=== PATIENT | female | born 1975 | race Caucasian/White ===

== ENCOUNTER → 2018-09-05 08:11 | Outpatient (CLI) | payer OTHER, SELFPAY ==
[2017-09-24 12:32] VITALS: BMI 38.6
[2018-09-05 08:43] LABS: Absolute Neutrophil Count 3.8 X10^3/uL (2.0-7.7); Basophil# 0.05 X10^3/uL; Basophil% 0.8 % (0-1); Eosinophil# 0.21 X10^3/uL; Eosinophils% 3.2 % (0-5); Hematocrit 39.3 % (37-47); Hemoglobin 12.6 g/dl (12.0-15.0); Lymphocyte % 32.2 % (19-41); Mean Corp Hgb Conc 32.1 g/gl (32-36); Mean Corpuscular Hgb 26.9 pg (27.0-32.0); Mean Corpuscular Volume 83.8 fL (81-99); Mean Platelet Vol. 9.4 fl (6.2-12.0); Monocyte# 0.36 X10^3/uL; Monocyte% 5.5 % (0-10); Neutrophil % 58.1 % (47-70); Platelet Count 294 K/mm3 (150-450); RBC Distribution Width CV 14.5 % (11.6-14.6); RBC Distribution Width SD 43.2 fl (35.1-43.9); Red Blood Count 4.69 M/mm3 (4.2-5.4); White Blood Count 6.5 K/mm3 (4.4-11.0)
[2018-09-05 08:44] LABS: POSITIVE COUNT NO; POSITIVE DIFFERENTIAL NO; POSITIVE MORPHOLOGY NO
[2018-09-05 09:02] LABS: AST(SGOT) 16 U/L (15-37); Alanine Aminotransfer ALT/SGPT 29 U/L (13-56); Albumin, Serum 3.6 g/dL (3.2-5.0); Alkaline Phosphatase 69 U/L (45-117); Anion Gap 7 (5-15); BUN 20 mg/dL (7-18); BUN/Creat Ratio 21.3 RATIO (10-20); Calcium,Total 8.5 mg/dL (8.5-10.1); Chloride 111 mmol/L (98-107); Cholesterol 147 mg/dL (200); Creatinine, Serum 0.94 mg/dL (0.55-1.02); EST Glomerular Filtration Rate 69 mL/min (>60); Est Glom Filt Rate - Afr Amer 84 mL/min (>60); Free T3 2.7 pg/mL (2.18-3.98); Globulin 3.6 g/dL (2.2-4.2); Glucose 91 mg/dL (74-106); High Density Lipoprotein 47 mg/dL; Potassium 4.1 mmol/L (3.5-5.1); Protein, Total 7.2 g/dL (6.4-8.2); Sodium Level 142 mmol/L (136-145); T4 Free Direct 1.16 ng/dL (0.76-1.46); Thyroid Stim Hormone (TSH) 1.84 uIU/mL (0.358-3.74); Triglycerides 68 mg/dL; Very Low Density Lipoprotein 14 mg/dL (5-40)
[2018-09-05 09:54] LABS: Hemoglobin A1c 5.7 % (4.2-6.3)
== END ==
PROVIDERS: Family Provider Family Medicine; PCP Family Medicine; Referring Provider Family Medicine; Visit Provider Family Medicine
DX: R73.03 Prediabetes (principal); E88.81 Metabolic syndrome and other insulin resistance; R53.83 Other fatigue
CPT/HCPCS: 36415; 80053; 80061; 83036; 84439; 84443; 84481; 85025

== ENCOUNTER → 2019-01-04 11:42 | Outpatient (CLI) | payer OTHER, SELFPAY ==
[2019-01-08 13:06] LABS: Acetylcholine Receptor Binding 0.24 nmol/L (0.00-0.24)
== END ==
PROVIDERS: Family Provider Family Medicine; PCP Family Medicine; Referring Provider Ophthalmology; Visit Provider Ophthalmology
DX: H02.402 Unspecified ptosis of left eyelid (principal); E11.9 Type 2 diabetes mellitus without complications
CPT/HCPCS: 36415; 84238

== ENCOUNTER → 2019-01-23 08:43 | Outpatient (CLI) | payer OTHER, SELFPAY ==
[2017-09-24 12:32] VITALS: BMI 38.6
== END ==
PROVIDERS: Family Provider Family Medicine; PCP Family Medicine; Referring Provider Family Medicine; Visit Provider Family Medicine
DX: G70.00 Myasthenia gravis without (acute) exacerbation (principal)
CPT/HCPCS: 36415

== ENCOUNTER → 2019-02-06 13:04 | Outpatient (CLI) | payer OTHER, SELFPAY ==
[2019-02-06 13:30] LABS: Absolute Lymphocyte Count 2.43 X10^3/ul (0.83-4.51); Absolute Neutrophil Count 3.4 X10^3/uL (2.0-7.7); Basophil# 0.02 X10^3/uL; Basophil% 0.3 % (0-1); Eosinophil# 0.26 X10^3/uL; Hematocrit 38.2 % (37-47); Hemoglobin 11.9 g/dl (12.0-15.0); Lymphocyte # 2.43 X10^3/ul (4.0); Lymphocyte % 36.9 % (19-41); Mean Corp Hgb Conc 31.2 g/gl (32-36); Mean Corpuscular Hgb 26.4 pg (27.0-32.0); Mean Corpuscular Volume 84.9 fL (81-99); Monocyte# 0.45 X10^3/uL; Monocyte% 6.8 % (0-10); Neutrophil # 3.41 X10^3/uL (2.7-7.7); Neutrophil % 51.8 % (47-70); Platelet Count 281 K/mm3 (150-450); RBC Distribution Width CV 13.8 % (11.6-14.6); RBC Distribution Width SD 42.4 fl (35.1-43.9); White Blood Count 6.6 K/mm3 (4.4-11.0)
[2019-02-06 13:31] LABS: POSITIVE COUNT NO; POSITIVE DIFFERENTIAL NO; POSITIVE MORPHOLOGY NO
[2019-02-06 13:44] LABS: Ferritin 18 ng/mL (8-252); Iron 58 ug/dL (50-170)
== END ==
LOC: LAB.FUTURE 13:05 → PAVLAB 13:07
PROVIDERS: Family Provider Family Medicine; PCP Family Medicine; Referring Provider Family Medicine; Visit Provider Family Medicine
DX: D64.9 Anemia, unspecified (principal); R23.3 Spontaneous ecchymoses
CPT/HCPCS: 36415; 82728; 83540; 85025

== ENCOUNTER → 2019-02-15 08:48 | Outpatient (CLI) | payer OTHER, SELFPAY ==
[2017-09-24 12:32] VITALS: BMI 38.6
--- NOTE | 2019-02-15 14:59 | NEURO_ITS ---
NCS and/or EMG Patient Report Ordering Doctor: Juliann Lowery DATE OF SERVICE: 02/15/19 Jacqueline Bloom is a 43-year-old female presents for electrodiagnostic testing of the right upper limb. She has had left sided ptosis for the past several years. She is referred for possible evaluation of neuromuscular disease and maddison ting to include repetitive stimulation, nerve conduction testing and EMG. Electrodiagnostic findings: Right median motor nerve demonstrates normal distal latency amplitude and conduction velocity. Normal right ulnar motor response, including conduction across the elbow. Normal median and ulnar F waves. Prolonged right median sensory latency at the wrist. Normal ulnar and radial sensory responses. On needle EMG, all muscles tested in the right upper limb showed no evidence of denervation with normal motor unit action potentials. Repetitive stimulation was done on the right abductor digiti minimi. Multiple stimulations were done without exercise and there was no evidence of decrement noted. The patient then exercised to the left hand for approximately 1 minute after which repetitive stimulation was once again done. Again, there was no decrement noted across the stimulations. Electrodiagnostic impression: This is an abnormal study in the right upper limb. 1. Electrodiagnostic findings demonstrate a right sided median mononeuropathy. This is consistent with a mild right carpal tunnel syndrome 2. Electrodiagnostic findings are not suggestive of neuromuscular disease, including myasthenia gravis. Repetitive stimulation before and after exercise did not demonstrate any decrement in amplitude. If there are any further questions, please do not hesitate contact me.
== END ==
PROVIDERS: Family Provider Family Medicine; PCP Family Medicine; Referring Provider Family Medicine; Visit Provider Family Medicine
DX: G70.00 Myasthenia gravis without (acute) exacerbation (principal)
CPT/HCPCS: 95886; 95910; 95937

== ENCOUNTER → 2019-03-10 07:13 | Outpatient (CLI) | payer OTHER, SELFPAY ==
[2017-09-24 12:32] VITALS: BMI 38.6
--- NOTE | 2019-03-10 07:45 | MRI_ITS ---
STUDY: MRI BRAIN WITH AND WITHOUT CONTRAST REASON FOR EXAM: Female, 43 years old. Left eye ptosis, left eye drifting TECHNIQUE: Standardized multiplanar fat and water weighted pulse sequences were obtained. 20 IV Dotarem was administered for the contrast portion of the examination. COMPARISON: 03/29/2008 FINDINGS: Normal size of the ventricles and extra-axial spaces for the patient's age. Normal white matter tracts of the supratentorial brain. There is no evidence for recent intracranial ischemia or other cause of cytotoxic edema on diffusion weighted imaging (DWI). Normal T2* images of the brain without demonstrated susceptibility artifact. There is no demonstrated hemosiderin stain. Normal bilateral basal ganglia. Normal thalami. There is no extra-axial fluid accumulation. Normal flow voids within the major intracranial circulation suggesting patency by spin echo criteria. Normal venous enhancement. There is no enhancing intra-axial or extra-axial abnormality. Normal sella turcica, pituitary gland, infundibular stalk, optic chiasm and hypothalamus. Normal tectal plate and pineal gland. Normal midbrain, naresh and medulla. 15 mm of cerebellar tonsillar ectopia with platybasia and cervical medullary kinking consistent with a Chiari I malformation. No obvious syrinx. Normal basal cisterns. Normal bilateral temporal bones. Normal bilateral internal auditory canals. No demonstrated orbital abnormality, within the constraints of a routine brain study. Normal visualized paranasal sinuses. Normal calvarium and skull base. Normal visualized soft tissue structures. Normal visualized upper cervical spine. MRI/Brain W/WO Contrast IMPRESSION: No change in Chiari I malformation. Electronically Signed: Otoniel Nolasco MD at 9:16 EDT Tel , Service support ,
--- NOTE | 2019-03-10 08:54 | BI_ITS ---
MAMMOGRAPHY - BILATERAL SCREENING REASON FOR EXAM: Female, 43 years old. Routine annual screening examination. PERTINENT HISTORY: Non-contributory. TECHNIQUE: Digital bilateral breast williams (3D mammographic acquisition) in the CC and MLO projections. 2-D mediolateral oblique (MLO) and craniocaudad (CC) views of both breasts were obtained. CAD: Full Field Digital Mammography with Computer Added Detection was performed. COMPARISON: Comparison is made with prior ocular examination dated May 14, 2015. FINDINGS: Breast Composition: There are scattered areas of fibroglandular density. There are no dominant masses or suspicious calcifications. There is a 5.3 mm well-defined nodule in the central retroareolar region of the left breast best seen on the craniocaudad view. This may represent either a small cyst or small lymph node. Correlation with ultrasound is recommended. No other significant abnormalities are identified. BI/SCREEN MAMM (CAD) W/WILLIAMS BILAT IMPRESSION: 5.3 mm well-defined nodule in the central retroareolar region of the left breast as described. Correlation with ultrasound is recommended. ASSESSMENT CATEGORY: BIRADS Category 0: Incomplete. Need additional imaging evaluation. A letter regarding these results will be sent to the patient by the facility within 30 days. Approximately 10% of breast cancers are not detected by mammography. A normal mammogram should not delay biopsy of a clinically suspicious abnormality. [id number] Electronically Signed: Arash Castaneda, at 8:27 EDT , Service support ,
== END ==
PROVIDERS: Family Provider Family Medicine; PCP Family Medicine; Referring Provider Family Medicine; Visit Provider Family Medicine
DX: Z12.31 Encounter for screening mammogram for malignant neoplasm of breast (principal); H50.112 Monocular exotropia, left eye; H02.402 Unspecified ptosis of left eyelid
CPT/HCPCS: 70553; 77063; 77067; A9575

== ENCOUNTER → 2019-03-17 09:57 | Outpatient (CLI) | payer OTHER, SELFPAY ==
--- NOTE | 2019-03-17 10:03 | US_ITS ---
STUDY: ULTRASOUND BREAST - LEFT REASON FOR EXAM: Female, 43 years old. Abnormal screening mammogram. TECHNIQUE: Axial and longitudinal images of the LEFT breast were performed with a high resolution ultrasound transducer. COMPARISON: Comparison is made with prior mammogram dated March 10, 2019. FINDINGS: LEFT Breast: The mammographic abnormality corresponds to a 5 mm x 6 mm x 5 mm well-defined hypoechoic nodule with a central echogenic hilum in keeping with a lymph node. This is at the 12:00 position of breast at 5 cm from the nipple. US/Breast Limited Unilateral IMPRESSION: The mammographic abnormality corresponds to a small 5 mm x 6 mm x 5 mm lymph node. ASSESSMENT CATEGORY: BIRADS Category 2: Benign. A letter regarding these results will be sent to the patient by the facility within 30 days. Electronically Signed: Arash Castaneda, at 11:05 EDT , Service support ,
== END ==
PROVIDERS: Family Provider Family Medicine; PCP Family Medicine; Referring Provider Family Medicine; Visit Provider Family Medicine
DX: R92.8 Other abnormal and inconclusive findings on diagnostic imaging of breast (principal); N63.42 Unspecified lump in left breast, subareolar
CPT/HCPCS: 76642

== ENCOUNTER 2019-06-09 10:12 | Day surgery (SDC) | payer OTHER, SELFPAY ==
[2019-04-28 09:49] VITALS: BMI 38.6
--- NOTE | 2019-05-01 08:37 | HP_ITS ---
Intake Vital Signs 04/27/19 Height 5 ft 3.5 in 04/27/19 Weight: 240 lb 04/27/19 Body Mass Index (BMI) 41.8 04/27/19 Blood Pressure 138/89 H 04/27/19 Blood Pressure Location Rt brachial 04/27/19 Respiratory Rate 18 04/27/19 Body Mass Index (BMI) 41.8 Intake Visit Reasons: Hemorrhoids Clinical Services Manager Required: No Allergies cephalexin [From Keflex] Adverse Reaction (Verified 04/27/19 14:54) makes him feel bad Medications Fluoxetine [Prozac] 60 mg PO DAILY 03/02/15 [History Confirmed 04/27/19] Acetaminophen/Codeine #3 [Tylenol#3] 1 tab PO Q6H PRN PRN 2 Days #5 tab 02/08/18 [Rx Confirmed 04/27/19] PFSH Medical History Depression (Acute) Environmental allergies (Acute) Surgical History S/P carpal tunnel release (Acute) S/P inguinal hernia repair (Acute) s/p lip cyst removal (Acute) Family History Father Arthritis Social History (Updated 05/01/19 @ 08:40 by Shiraz Marroquin MD) Smoking Status: Former smoker alcohol intake: current HPI HPI HPI: DI STRANGE, is a 50 M who presents to the office today for HPI HPI Surgical H&P: Yes HPI: DI STRANGE, is a 50 M who presents to the office today for hemorrhoids. The patient has itching and discomfort. He said that occasionally he sees some bright red blood when he wipes but there is none in his stool. He is not having any abdominal pain. He has no family history of colon cancer. ROS General General: No weight change, appetite, fatigue, colon cancer, breast cancer or weakness HEENT HEENT: No difficulty swallowing, eye injury, eye surgery, swollen glands or hoarseness Endo Endocrine: No thyroid disease, diabetes mellitus, thyroid cancer, Hair loss, heat intolerance or cold intolerance Skin Skin: No rash or changing moles Breast Breast: No left breast lump, right breast lump, nipple discharge, breast pain, abnormal mammogram, abnormal US or breast enlargement Musc Musculoskeletal: Yes arthritis; no back problems, rheumatoid arthritis, gout or joint pain Cardio Cardiovascular: Yes high blood pressure; no murmur, pacemaker, heart disease, atrial fibrillation, heart attack, heart stent, palpitations, shortness of breat with exertion or chest pain Psych Psychiatric: Yes depression; no anxiety or hearing voices Resp Respiratory: No shortness of breath, Yes sleep apnea, No cough, No COPD, No asthma, No emphysema, No wheezing Gastro Gastrointestinal: No abdominal pain, No nausea or vomiting, No diarrhea, No constipation, No blood in stool, No acid reflux, Yes hemorrhoids, No ulcers, No gallbladder problem, No black,tarry stools Franky Hematologic: No blood thinners, No blood disorders, No bleeding, No anemia, No blood clots Neuro Neurologic: No system reviewed and no additional complaints, except as docu, No as per HPI, No abnormal walking, No abnormal hearing, No abnormal movements, No abnormal speech, No behavioral changes, No burning sensations, No confusion, No seizure-like activity, No unsteadiness, No dizziness, No localized weakness, No frequent falls, No headache(s), No lack of coordination, No loss of vision, No memory loss, No numbness, No other visual disturbances, No radiating pain, No restless legs, No sensory deficit, No fainting, No tingling, No tremor(s), No weakness, No other Exam Const General: cooperative Orientation: alert, oriented x3 Chest Breast Palpation: No nipple discharge Resp Effort & Inspection: normal respiratory effort Auscultation: clear to auscultation bilaterally Cardio Rate: regular rate Rhythm: regular rhythm Heart Sounds: no murmurs GI Inspection: non-distended Palpation: soft, nontender Rectal Exam: visual inspection normal Assessment & Plan Problems 1. Rectal itching L29.0 2. Encounter for screening for malignant neoplasm of colon Z12.11 Plan The patient has no appreciable hemorrhoids on rectal exam. He is complaining of itching and pain in the rectal area. The patient has never had a screening colonoscopy so I would recommend he have a colonoscopy now. I explained endoscopy in detail to the patient. I explained the risks including but not limited to stroke or heart attack with anesthesia, perforation of the GI tract, bleeding, infection. I explained that any of these could necessitate further emergency surgery. The patient understands and all questions were answered sufficiently. The patient wishes to proceed with procedure. Shiraz Marroquin MD Pager: [facility] [address] [place] [address], [address] [place] [address] Office: Orders Orders: Colonoscopy 04/27/19 Z12.11 Coding Level of Care Code Off vis,new,level 3 Diagnoses Rectal itching L29.0 Encounter for screening for malignant neoplasm of colon Z12.11 05/01/19 0840 <Electronically signed by Shiraz wyatt MD> Date _ Shiraz Marroquin MD I have re-examined the patient. There are no clinical changes since date of exam.
[2019-06-09] VITALS (7 sets, daily range): BP systolic 92–109; BP diastolic 57–68; PULSE 60–78; RESP 16; TEMP 36.3–37; O2SAT 93–100; BMI 34.4
--- NOTE | 2019-06-09 | GASB_PTH ---
PATIENT: YASMIN ESQUIVEL LOC: EN U#:[id number] AGE/SX: 44/F ROOM: RE06/09/[address]: Dr. Shiraz Marroquin MD : 1975 BED: DIS: 06/09/2019 SPEC #: [id number] RECD: 06/09/19 14:48 STATUS: CAREY MICHELE #: [id number] JOCE: 06/09/19 00:[address]: Shiraz Marroquin DEPT: SURGICAL PATHOLOGY RECD BY: Rodriguez Steiner ENTERED: 06/09/19 14:48 SP TYPE: Gastric Bx OTHR DR: Dr. Juliann Lowery DO Tissues: A - Gastric mucous membrane B - Gastric mucous membrane Procedures: Special Stain Group II Surgery Specimen Level IV Alcian Blue/PAS (control) HEADER OPERATION: EGD - PH probe ([facility]) PRE-OP DIAGNOSIS: GERD TISSUE SUBMITTED: A - Antrum biopsy for histo and H. pylori, B - GE junction biopsy MICROSCOPIC DIAGNOSIS A. Antrum biopsy: Mild to moderate gastritis. See microscopic description and comment. B. GE junction, biopsy: Fragments of gastroesophageal mucosa with chronic inflammation. Intestinal metaplasia (goblet cell metaplasia) is not identified. See comment. SJ:anurag 06/12/19 COMMENT A. The results of immunohistochemistry for Helicobacter pylori will be reported separately ([id number]). B. Alcian blue/PAS stain with matched control is used in the evaluation of the specimen. MICROSCOPIC DESCRIPTION Slides are reviewed. A. The specimen shows fragments of gastric mucosa with chronic inflammatory cell infiltrates in the lamina propria consisting of lymphocytes and plasma cells, consistent with mild to moderate chronic gastritis. GROSS DESCRIPTION A - Received in fixative is one container labeled with the patient's name and designated antrum biopsy. The specimen consists of two irregular fragments of light parikh soft tissue that in aggregate measure 0.6 x 0.5 x 0.1 cm. The specimen is totally submitted in one cassette. B - Received in fixative is one container labeled with the patient's name and designated GE junction biopsy. The specimen consists of multiple irregular fragments of light parikh soft tissue that in aggregate measure 0.7 x 0.3 x 0.1 cm. The specimen is totally submitted in one cassette. / RUSLAN:anurag 06/09/19 TC:3 CPT: 00091 x2, 10998
[2019-06-09] MEDS: Lactated Ringers 1,000 ML 100 ML IV (10:56)
[2019-06-09 11:03] LABS: Internal QC Validated? YES +Cl - CLEAR BKGD; Pregnancy, Urine Negative Negative
--- NOTE | 2019-06-09 11:30 | IMM_PTH ---
PATIENT: YASMIN ESQUIVEL LOC: [facility] U#:[id number] AGE/SX: 44/F ROOM: RE06/09/[address]: Dr. Shiraz Marroquin MD : 1975 BED: DIS: 06/09/2019 SPEC #: [id number] RECD: 06/12/19 09:21 STATUS: CAREY RESeverino #: [id number] JOCE: 06/09/19 11:[address]: Shiraz Marroquin DEPT: IMMUNOHISTOCHEMISTRY RECD BY: So Kennedy ENTERED: 06/12/19 09:23 SP TYPE: IMMUNO OTHR DR: Dr. Juliann Lowery DO Tissues: A - Stomach, NOS Procedures: H Pylori (initial) PHYSICIAN & INSTITUTION [place] [id number] SPECIMEN INFORMATION: Tissue Source: A - Antrum biopsy Clinical Info: GERD Specimen Number: [id number] CPT code: 35572 METHODOLOGY: Deparaffinized sections of prefer/formalin-fixed tissue or PAP/DQ stained slides are incubated with monoclonal/polyclonal antibodies/oligonucleotide probes. Localization is made via biotin free immunoperoxidase method. Appropriate controls are performed and reacted as expected. Results on target cell population are indicated in the following table: RESULTS: ANTIBODY / CLONE RESULT Block A H Pylori (polyclonal) negative These tests were developed and their performance characteristics determined by [facility]. They may not have been cleared or approved by the U.S. Food and Drug Administration. The FDA has determined that such clearance or approval is not necessary. INTERPRETATION: A. Antrum biopsy: Negative for Helicobacter pylori organisms. SJ:anurag 06/12/19
--- NOTE | 2019-06-09 11:54 | HP.PCM_ITS ---
History of Present Illness Date of Admission: 06/09/19 The patient is a 44 year old F with severe GERD is here for EGD with pH probe. The patient has had significant GERD for a long time and is dependent on PPI. Past Medical/Surgical History - Planned Operation Planned Operative Procedure/s: egd ph probe Date of Operative Procedure: 06/09/19 Permit Signed: No S.O.S: No Is This Patient Having a Total Joint: No - Previous Hospitalizations/Surgeries HX Hospitalizations: No HX of Surgeries: tonsillectomy as child. d&c 2002. eye lift 2007 Any Problems With Anesthesia: No You/Your Family Experience Fever (Hyperthermia) With Anes: No Cholinesterase deficiency: No - Cardiovascular Hx Chest Pain within Last 2 months: No Hx of Irregular Heartbeat and/or Afib: No Hx Heart Attack: No Hx Congestive Heart Failure: No Hx Rheumatic Fever: No Hx Hypertension: No Hx Internal Defibrillator: No Hx Pacemaker: No Hx Cardiac Catheterization: No Hx Cardiac Surgery/Stents/Etc.: No Hx Stress Test: No HX Edema: No Hx Pain in Legs when Walking/Leg Cramps: No - Respiratory Chronic Cough: No HX of Shortness of Breath: No Hoarseness: No Hx Chronic Obstructive Pulmonary Disease (COPD): No Hx Asthma: Yes - exercised induced Hx Emphysema: No Hx Sleep Apnea: No Hx Oxygen Use at Home: No Hx Respiratory Tract Infection/Cold (presently): No Do You Snore Loudly (louder than talking or can be heard): Yes Do You Often Feel Tired/ Fatigued/ Sleepy Dring Daytime?: No Has Anyone Observed You Stop Breathing During Sleep?: No Result (for STOP score): Negative Hx Smoking: No Smoking Status: Never smoker - Gastrointestinal Hx Gastroesophageal Reflux: Yes Controlled With Meds: Yes Hx Gastrointestinal Disorders: No Hx Gastrointestinal Bleed: No Hx Ulcer: No Hx Hiatal Hernia: No Difficulty Chewing/Swallowing: No Recent Onset of Swallowing Problems: No Special diet followed at home: Yes - ada Hx Unplanned Weight Loss of 20#: No HX Unplanned Weight Gain of 20#: No - Neurological Hx Seizures: No HX Syncope/Blackout Spells/Unconsciousness: No Hx CVA/Stroke: No Hx Transient Ischemic Attacks (TIA): No Hx Multiple Sclerosis: No Hx Parkinson's Disease: No Hx Head/Neck Injury: No Hx Headaches: No Hx Back Injury/Pain: No Recent Onset of Speech Difficulty: No Restless Legs: Yes - on med Does patient have nerve stimulator: No Patient instructed to have device shut off: No Rep notified?: No - Blood Disorder Hx Leukemia: No Bleeding Tendencies: Yes - easy bruising Hx Deep Vein Thrombosis: No Hx High Cholesterol: No Blood Transmitted Disease: No Hx Hepatitis: No Hx Cirrhosis: No Hx Anemia: No Hx Blood Disorders: No - Reproduction : No Is Patient Lactating: No Hx Hysterectomy: No Hx Tubal Ligation: No Are You Post Menopause: No Pt Instructed Not To Have Any Sex From Now Until Surgery: No - Genitourinary Hx Renal Disease: No - Musculoskeletal Hx Arthritis: No Hx Rheumatoid Arthritis: No Hx Gout: No Recent Onset of an Orthopedic Problem: No - Endocrine Hx Diabetes: Yes Insulin: No Thyroid Disease: No Hx Steroid Therapy: No - Psycho/Social Hx Substance Use: No Hx Alcohol Use: No Hx Anxiety: No Hx Depression: Yes - on med Mental Illness: No Hx Dementia: No - Miscellaneous Hx Cancer: No Recent Exposure to Contagious Disease: No Active MRSA: No Hx of C-Diff: No Any Loose Teeth: No Allergies Penicillins Allergy (Verified 06/08/19 10:43) Rash - Discharge Is Pt Admitted From a Skilled Nursing, or a Long-Term: No Who Could Help: family After D/C, Where Do you Plan to Go: Return Home - Physical Exam Vitals/I&O's: Vital Signs Temp Pulse Resp BP Pulse Ox 98.6 F 75 16 109/68 93 06/09/19 10:46 06/09/19 10:46 06/09/19 10:46 06/09/19 10:46 06/09/19 10:46 Oxygen Delivery Method Room Air Weight: 213 lb 13.574 oz Body Mass Index (BMI) 34.4 General: Alert, Oriented x3 Neck: No JVD Lungs: Normal air movement Cardiovascular: Regular rate, Regular Rhythm Abdomen: Soft, Non Tender, Non-Distended Laboratory Results 06/09/19 10:46: Urine Test Negative Current Medications Lactated Ringer's () 1,000 mls @ 100 mls/hr IV .Q10H GISELLA Last Admin: 06/09/19 10:56 Dose: 100 mls/hr Documented by: Assessment/Plan All Active Problems (Last Reviewed 04/28/19 @ 09:42 by Tiana Black) History of eyelid surgery (Acute) Hx of dilation and curettage (Acute) Hx of tonsillectomy (Acute) Acid reflux (Acute) Heart murmur (Acute) of child (Acute) Conjunctivitis (Acute) Corneal abrasion (Acute) 44-year-old female with severe GERD 1. Plan is for EGD with pH probe. 2. I explained endoscopy in detail to the patient. I explained the risks including but not limited to stroke or heart attack with anesthesia, perforation of the GI tract, bleeding, infection. I explained that any of these could nece ssitate further emergency surgery. The patient understands and all questions were answered sufficiently. The patient wishes to proceed with procedure. Shiraz Marroquin MD Pager: [facility] [address] [place] [address], [address] [place] [address] Office: Surgery Risks - Colonoscopy Risks Include but are not Limited To: Risks include but are not limited to: Bleeding, perforation requiring further surgery, inability to complete colonoscopy requiring barium enema.
--- NOTE | 2019-06-09 12:25 | OP.EGD_ITS ---
Patient Name: Jacqueline Bloom Procedure Date: 06/09/2019 12:00 PM Date of : 1975 Age: 44 Procedure: Upper GI endoscopy Indications: Suspected gastro-esophageal reflux disease Providers: Shiraz Marroquin MD Referring MD: Juliann Lowery Medicines: Monitored Anesthesia Care Patient Profile: This is a 44 year old female. Refer to note in patient chart for documentation of history and physical. Complications: No immediate complications. Estimated blood loss: Minimal. Procedure: Pre-Anesthesia Assessment: - Prior to the procedure, a History and Physical was performed, and patient medications and allergies were reviewed. The patient's tolerance of previous anesthesia was also reviewed. The risks and benefits of the procedure and the sedation options and risks were discussed with the patient. All questions were answered, and informed consent was obtained. Prior Anticoagulants: The patient has taken no previous anticoagulant or antiplatelet agents. After reviewing the risks and benefits, the patient was deemed in satisfactory condition to undergo the procedure. After obtaining informed consent, the endoscope was passed under direct vision. Throughout the procedure, the patient's blood pressure, pulse, and oxygen saturations were monitored continuously. The gastroscope was introduced through the mouth, and advanced to the second part of duodenum. The upper GI endoscopy was accomplished without difficulty. The patient tolerated the procedure well. Scope In: 12:14:02 PM Scope Out: 12:21:47 PM Total Procedure Duration Time 0 hours 7 minutes 45 seconds Findings: Esophagitis with no bleeding was found at the gastroesophageal junction. Biopsies were taken with a cold forceps for histology. Mild inflammation was found in the gastric antrum. Biopsies were taken with a cold forceps for Helicobacter pylori testing. The ANDERSON capsule with delivery system was introduced through the mouth and advanced into the esophagus, such that the ANDERSON pH capsule was positioned 30 cm from the incisors, which was 6 cm proximal to the GE junction. Suction was applied to the well of the ANDERSON pH capsule to suck in the adjacent mucosa of the esophagus using the external vacuum pump set at a minimum vacuum pressure of 550 mmHg for 30 seconds. The ANDERSON pH capsule was then deployed by depressing the plunger on top of the handle to advance the locking pin into the mucosa, thereby attaching the capsule to the esophagus. The plunger was then rotated a quarter turn clockwise to release the capsule from the delivery system. The delivery system was then withdrawn. Endoscopy was utilized for probe placement and diagnostic evaluation. The scope was reinserted to evaluate placement of the ANDERSON capsule. Visualization showed the ANDERSON capsule to be in an appropriate position. Impression: - Reflux esophagitis. Biopsied. - Gastritis. Biopsied. - The ANDERSON pH capsule was positioned 30 cm from the incisors, which was 6 cm proximal to the GE junction. Recommendation: - Discharge patient to home. - Resume previous diet. - Continue present medications. - Await pathology results. Procedure Code(s): --- Professional --- 85581, Esophagogastroduodenoscopy, flexible, transoral; with biopsy, single or multiple 43029, 51, Esophagus, gastroesophageal reflux test; with mucosal attached telemetry pH electrode placement, recording, analysis and interpretation Diagnosis Code(s): --- Professional --- K21.0, Gastro-esophageal reflux disease with esophagitis K29.70, Gastritis, unspecified, without bleeding CPT copyright 2017 [employer]. All rights reserved. The codes documented in this report are preliminary and upon access services librarian review may be revised to meet current compliance requirements. Shiraz Marroquin MD 06/09/2019 12:25:32 PM This report has been signed electronically. Number of Addenda: 0 Note Initiated On: 06/09/2019 12:00 PM
== END 2019-06-09 13:10 | disposition home or self-care (01) ==
LOC: EN 10:12 → AC 10:17
PROVIDERS: Anesthesiology; Family Provider Family Medicine; PCP Family Medicine; Referring Provider Family Medicine; Visit Provider Surgery
PROC: (CPT 43239; principal; 2019-06-09 11:25)
DX: K21.9 Gastro-esophageal reflux disease without esophagitis (principal); K29.70 Gastritis, unspecified, without bleeding; E11.9 Type 2 diabetes mellitus without complications; G25.81 Restless legs syndrome; J45.990 Exercise induced bronchospasm; F32.9 Major depressive disorder, single episode, unspecified; Z79.84 Long term (current) use of oral hypoglycemic drugs; Z79.899 Other long term (current) drug therapy; Z88.0 Allergy status to penicillin
CPT/HCPCS: 43239; 91035; 81025; 88305; 88313; 88342; J7120; J2405

== ENCOUNTER → 2020-06-12 10:27 | Outpatient (CLI) | payer OTHER, SELFPAY ==
[2019-06-09 10:46] VITALS: BMI 34.4
--- NOTE | 2020-06-12 10:32 | BI_ITS ---
MAMMOGRAPHY - BILATERAL SCREENING REASON FOR EXAM: Female, 45 years old. Routine annual screening examination. PERTINENT HISTORY: Non-contributory. TECHNIQUE: Digital bilateral breast williams (3D mammographic acquisition) in the CC and MLO projections. 2-D mediolateral oblique (MLO) and craniocaudad (CC) views of both breasts were obtained. CAD: Full Field Digital Mammography with Computer Added Detection was performed. COMPARISON: Comparison is made with prior study dated 03/10/2019. FINDINGS: Breast Composition: There are scattered areas of fibroglandular density. There are no dominant masses or suspicious calcifications. Stable faint 5.3 mm well-defined nodule in the central retroareolar region of the left breast. This is best seen on the craniocaudad view. Prior ultrasound demonstrated this to represent a small lymph node. No other significant abnormalities are identified. There has been no significant change since the prior study. BI/SCREEN MAMM (CAD) W/WILLIAMS BILAT IMPRESSION: Stable bilateral screening mammogram. Yearly follow-up mammogram recommended. (A) ASSESSMENT CATEGORY: BIRADS Category 2: Benign. A letter regarding these results will be sent to the patient by the facility within 30 days. Approximately 10% of breast cancers are not detected by mammography. A normal mammogram should not delay biopsy of a clinically suspicious abnormality. [id number] Electronically Signed: Arahs Castaneda, at 11:35 EST , Service support ,
== END ==
PROVIDERS: PCP Family Medicine; Referring Provider Family Medicine; Visit Provider Family Medicine
DX: Z12.31 Encounter for screening mammogram for malignant neoplasm of breast (principal)
CPT/HCPCS: 77063; 77067

== ENCOUNTER 2020-09-09 15:30 | Outpatient (RCR) | payer OTHER, SELFPAY ==
[2020-08-16 08:07] VITALS: BMI 37.1
--- NOTE | 2020-08-21 17:06 | HP.PTEVAL_ITS ---
Patient's Visit Information YASMIN ESQUIVEL is a 45 year old F referred to Physical Therapy by Dr. Eduar Robert DO with a diagnosis of R biceps tendonitis. Date of Evaluation: 08/21/20 Physical Therapist: AUGUSTIN LynchT, OCS, CSCS - Visit Plan Frequency: 1-3x/week Duration: 4-6 Weeks Plan: 1-3x/week for 3-6 weeks as needed for. 1. strength posture and RC and activitiy modification for impingement. 2. needed increase frequency for US, CFM, grade 1-2 shoulder mobs adn strength progression. Next session monitor activitiy modification adn progress to strengthening phase 3 or incrrease frequency for modalities. - Subjective 8 weeks ago started R shoulder pain. Does crossfit 3x/week adn running adn walking. Had to scale crossfit workout adn [facility] Last Wednesday injectiona dn antiinflammatory adn sent for PT. Not feeling a whole lot better. Pain is not present at rest. Reaching OH hurts, sleeping on R side hurts with arms up, Reaching across chest is painful. Curls and burpees are OK. Sleep OK if not on R side. 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 Work is pretty OK. Likes to walk dogs and it has been fine. Basic ADLs: dressing is OK and reaching into cupboards. Not avoiding anything that she can think of. Did fall one time about when this started. Knocked over by dog and landed on R arm. - Pain R shoulder pain Pain Intensity (Out of 10): 0 Pain Intensity Range: 0, 5 - Objective FW head posture and forward shoulders. Tender to papation in R supraspinatus insertion and biceps tendon anteriory. Full aROM R shoulder but end IR, flexion adn across body is painful. neck adn L shoulder ROM is full and painfree. reflexes 2/3 bi and tri. Sensation B UE WNL to gross light touch. + R HK adn neer. - sulcus. - apprehension. - speeds. - Goals Goal 1:: Patient feel 90% better with pain 1/10 at worst adn transient Goal Time Frame: 4-6 Weeks Goal 2:: Pt back to effective crossfit workout without limitations shoulder Goal Time Frame: 4-6 Weeks Goal 4:: I approp HEP for RC/postural strength Goal Time Frame: 4-6 Weeks - Rehabilitation Potential Physical Therapy Diagnosis: R biceps impingement tendonitis Rehabilitation Potential: Good - Anticipated Interventions Patient/Client Instruction: Educate patient on: Condition, Plan of Care For the Purpose of:: To decrease pain, To improve muscle performance and motor function, To increase tolerance to activity/condition/position Therapeutic Exercise to Include: Strength training, Postural training, Passive ROM, Scapular Strength/Stabilization For the Purpose of:: To decrease pain, To improve muscle performance and motor function, To increase tolerance to activity/condition/position, To improve ability of physical actions for home/community/work/leisure Manual Therapy Techniques to Include: Mobilization, Passive ROM, Soft tissue mobilization For the Purpose of:: To decrease pain, To decrease swelling/inflammation Cryotherapy (ice pack, ice massage): Yes Ultrasound (thermal/non thermal): Yes For the Purpose of:: To decrease pain, To decrease swelling/inflammation Thank you for the opportunity to evaluate your patient. For Medicare and Medicare HMO plans, please review the plan of care and approve it. It will need to be FAXED BACK to us at [phone] for Medicare purposes. For Medicare only, by signing this I certify the plan of care. Please let me know if there are questions or concerns regarding this plan of care. Physician Signature: Date:
--- NOTE | 2020-11-20 10:08 | HP.PT.NRP ---
YASMIN ESQUIVEL was seen in my office for initial evaluation on 08/21/20. The following Plan of Care was established for this patient: Initial Frequency: 1-3x/week Initial Duration: 4-6 Weeks Patient/Client Instruction: Educate patient on: Condition, Plan of Care For the Purpose of:: To decrease pain, To improve muscle performance and motor function, To increase tolerance to activity/condition/position Therapeutic Exercise to Include: Strength training, Postural training, Passive ROM, Scapular Strength/Stabilization For the Purpose of:: To decrease pain, To improve muscle performance and motor function, To increase tolerance to activity/condition/position, To improve ability of physical actions for home/community/work/leisure Manual Therapy Techniques to Include: Mobilization, Passive ROM, Soft tissue mobilization For the Purpose of:: To decrease pain, To decrease swelling/inflammation Cryotherapy (ice pack, ice massage): Yes Ultrasound (thermal/non thermal): Yes For the Purpose of:: To decrease pain, To decrease swelling/inflammation This patient was last seen in our office 09/09/20. Pertinent comments regarding their Physical therapy will appear below: Pt seen 2 visits of POC but neglected to schedule or attend any further visits. At this point, it has been over 2 months adn I will discontinue due to nonattendance. At this point I will be discontinuing this patient from physical therapy. I would be happy to see this patient again in the future if found appropriate by the physician. Thank you! Uche Tucker, DPT, OCS, CSCS
== END 2020-09-09 19:00 | disposition home or self-care (01) ==
LOC: PT 15:30
PROVIDERS: PCP Family Medicine; Referring Provider Orthopaedic Surgery; Visit Provider Orthopaedic Surgery
DX: M75.21 Bicipital tendinitis, right shoulder (principal)
CPT/HCPCS: 97110; 97161

== ENCOUNTER → 2020-09-20 07:37 | Outpatient (CLI) | payer OTHER, SELFPAY ==
[2020-08-16 08:07] VITALS: BMI 37.1
[2020-09-20 08:09] LABS: Absolute Lymphocyte Count 2.24 X10^3/uL (0.83-4.51); Basophil# 0.03 X10^3/uL; Basophil% 0.4 % (0-1); Eosinophil# 0.23 X10^3/uL; Eosinophils% 3.3 % (0-5); Hematocrit 38.2 % (37-47); Hemoglobin 12.3 g/dL (12.0-15.0); Lymphocyte # 2.24 X10^3/ul (4.0); Lymphocyte % 32.5 % (19-41); Mean Corp Hgb Conc 32.2 g/dL (32-36); Mean Corpuscular Hgb 26.6 pg (27.0-32.0); Mean Corpuscular Volume 82.7 fL (81-99); Monocyte# 0.44 X10^3/uL; Monocyte% 6.4 % (0-10); NRBC Flagged by Analyzer 0 % (0-5); Neutrophil # 3.95 X10^3/uL (2.7-7.7); Neutrophil % 57.3 % (47-70); Platelet Count 298 K/mm3 (150-450); RBC Distribution Width CV 13.3 % (11.6-14.6); RBC Distribution Width SD 39.7 fl (35.1-43.9); Red Blood Count 4.62 M/mm3 (4.2-5.4); White Blood Count 6.9 K/mm3 (4.4-11.0)
[2020-09-20 08:31] LABS: AST(SGOT) 17 U/L (15-37); Alanine Aminotransfer ALT/SGPT 25 U/L (13-56); Albumin, Serum 3.5 g/dL (3.2-5.0); Alkaline Phosphatase 76 U/L (45-117); Anion Gap 4 (5-15); BUN 27 mg/dL (7-18); BUN/Creat Ratio 29.5 RATIO (10-20); Chloride 108 mmol/L (98-107); Cholesterol 200 mg/dL (200); Creatinine, Serum 0.92 mg/dL (0.55-1.02); EST Glomerular Filtration Rate 71 mL/min (>60); Est Glom Filt Rate - Afr Amer 86 mL/min (>60); Globulin 3.6 g/dL (2.2-4.2); Glucose 95 mg/dL (74-106); High Density Lipoprotein 62 mg/dL; Potassium 3.9 mmol/L (3.5-5.1); Protein, Total 7.1 g/dL (6.4-8.2); Sodium Level 138 mmol/L (136-145); Thyroid Stim Hormone (TSH) 1.87 uIU/mL (0.358-3.74); Triglycerides 88 mg/dL; Very Low Density Lipoprotein 18 mg/dL (5-40)
[2020-09-20 08:42] LABS: Hemoglobin A1c 5.7 % (3.8-5.6)
[2020-09-20 16:03] LABS: Xtra Tube EP Lab EXTRA TUBE
== END ==
PROVIDERS: PCP Family Medicine; Referring Provider Family Medicine; Visit Provider Family Medicine
DX: R73.03 Prediabetes (principal); Z51.81 Encounter for therapeutic drug level monitoring; Z13.220 Encounter for screening for lipoid disorders
CPT/HCPCS: 36415; 80053; 80061; 83036; 84443; 85025

== ENCOUNTER 2021-05-19 16:27 | Outpatient (CLI) | payer OTHER, SELFPAY ==
[2021-05-19 16:41] VITALS: BP 132/74; PULSE 101; RESP 18; TEMP 36.6; O2SAT 99; BMI 36.3
[2021-05-19] MEDS: 0.9% Saline Lock 10 ML Syringe IV (16:46)
[2021-05-19 17:29] VITALS: BP 122/73; PULSE 91; RESP 16; TEMP 36.9; O2SAT 99
[2021-05-19 18:24] VITALS: BP 119/67; PULSE 93; RESP 16; TEMP 36.9; O2SAT 93
== END 2021-05-19 18:31 | disposition home or self-care (01) ==
LOC: MS3OUT 16:27 → MS3 16:28
PROVIDERS: PCP Family Medicine; Referring Provider Nurse Practitioner Adult Health; Visit Provider Nurse Practitioner Adult Health
DX: U07.1 COVID-19 (principal)
CPT/HCPCS: J7050; M0243; A4216; Q0244

== ENCOUNTER 2021-08-07 10:02 | Outpatient (CLI) | payer OTHER, SELFPAY ==
--- NOTE | 2021-08-07 10:08 | RAD_ITS ---
STUDY: X-RAY - RIGHT TIBIA AND FIBULA REASON FOR EXAM: Female, 46 years old. Pain following a fall. TECHNIQUE: 2 view(s) of the tibia and fibula were obtained. COMPARISON: None. FINDINGS: Normal visualized tibia. Normal visualized fibula. The soft tissue structures are unremarkable. RAD/Tibia & Fibula 2 Views IMPRESSION: Normal x-ray examination of the tibia and fibula. Electronically Signed: Arash Castaneda MD at 12:02 EST , Service support ,
== END 2021-08-07 23:59 | disposition short-term general hospital (02) ==
PROVIDERS: PCP Family Medicine; Referring Provider Family Medicine; Visit Provider Family Medicine
DX: M79.661 Pain in right lower leg (principal); W19.XXXA Unspecified fall, initial encounter
CPT/HCPCS: 73590

== ENCOUNTER → 2022-05-21 | Outpatient (CLI) | payer OTHER, SELFPAY ==
[2022-05-21 07:44] LABS: Absolute Lymphocyte Count 2.44 X10^3/uL (0.83-4.51); Absolute Neutrophil Count 3.8 X10^3/uL (2.0-7.7); Basophil# 0.03 X10^3/uL; Basophil% 0.4 % (0-1); Eosinophil# 0.17 X10^3/uL; Eosinophils% 2.5 % (0-5); Hematocrit 40.5 % (37-47); Hemoglobin 12.7 g/dL (12.0-15.0); Lymphocyte # 2.44 X10^3/ul (0.83-4.51); Lymphocyte % 35.3 % (19-41); Mean Corp Hgb Conc 31.4 g/dL (32-36); Mean Corpuscular Hgb 25.6 pg (27.0-32.0); Mean Corpuscular Volume 81.7 fL (81-99); Mean Platelet Vol. 8.8 fl (6.2-12.0); Monocyte# 0.45 X10^3/uL; Monocyte% 6.5 % (0-10); NRBC Flagged by Analyzer 0 % (0-5); Neutrophil # 3.81 X10^3/uL (2.7-7.7); Neutrophil % 55.2 % (47-70); Platelet Count 289 K/mm3 (150-450); RBC Distribution Width CV 14.6 % (11.6-14.6); RBC Distribution Width SD 43.3 fl (35.1-43.9); Red Blood Count 4.96 M/mm3 (4.2-5.4); White Blood Count 6.9 K/mm3 (4.4-11.0)
[2022-05-21 08:14] LABS: Hemoglobin A1c 5.9 % (3.8-5.6)
[2022-05-21 08:22] LABS: AST(SGOT) 13 U/L (15-37); Alanine Aminotransfer ALT/SGPT 20 U/L (13-56); Albumin, Serum 3.8 g/dL (3.2-5.0); Alkaline Phosphatase 77 U/L (45-117); Anion Gap 4 (5-15); BUN 23 mg/dL (7-18); Calcium,Total 9.2 mg/dL (8.5-10.1); Chloride 108 mmol/L (98-107); Cholesterol 174 mg/dL (200); Creatinine, Serum 0.92 mg/dL (0.55-1.02); EST Glomerular Filtration Rate 70 mL/min (>60); Est Glom Filt Rate - Afr Amer 85 mL/min (>60); Globulin 3.7 g/dL (2.2-4.2); Glucose 100 mg/dL (74-106); High Density Lipoprotein 56 mg/dL; Potassium 4.3 mmol/L (3.5-5.1); Protein, Total 7.5 g/dL (6.4-8.2); Sodium Level 140 mmol/L (136-145); Thyroid Stim Hormone (TSH) 1.25 uIU/mL (0.358-3.74); Triglycerides 69 mg/dL; Very Low Density Lipoprotein 14 mg/dL (5-40)
== END | disposition home or self-care (01) ==
PROVIDERS: PCP Family Medicine; Referring Provider Family Medicine; Visit Provider Family Medicine
DX: Z00.00 Encounter for general adult medical examination without abnormal findings (principal); R73.03 Prediabetes; Z51.81 Encounter for therapeutic drug level monitoring
CPT/HCPCS: 36415; 80053; 80061; 83036; 84443; 85025

== ENCOUNTER → 2022-07-17 | Outpatient (CLI) | payer OTHER, SELFPAY ==
--- NOTE | 2022-07-17 08:01 | BI_ITS ---
MAMMOGRAPHY - BILATERAL SCREENING REASON FOR EXAM: Female, 47 years old. Routine annual screening examination. PERTINENT HISTORY: Non-contributory. TECHNIQUE: Digital bilateral breast williams (3D mammographic acquisition) in the CC and MLO projections. 2-D mediolateral oblique (MLO) and craniocaudad (CC) views of both breasts were obtained. CAD: Full Field Digital Mammography with Computer Added Detection was performed. COMPARISON: Comparison is made with prior examination of 06/12/2020 and 03/10/2019. FINDINGS: Breast Composition: The breasts are almost entirely fatty. There are no dominant masses or suspicious calcifications. Stable benign appearing bilateral axillary lymph nodes. No other significant abnormalities are identified. There has been no significant change since the prior study. BI/SCRN MAMM (CAD)W/WILLIAMS BILAT IMPRESSION: Stable bilateral screening mammogram. Yearly follow-up mammogram recommended. (A) ASSESSMENT CATEGORY: BIRADS Category 1: Negative. A letter regarding these results will be sent to the patient by the facility within 30 days. Approximately 10% of breast cancers are not detected by mammography. A normal mammogram should not delay biopsy of a clinically suspicious abnormality. [id number] Electronically Signed: Arash Castaneda MD at 14:44 EST ,
== END | disposition home or self-care (01) ==
LOC: OPBI 08:00
PROVIDERS: PCP Family Medicine; Visit Provider Family Medicine
DX: Z12.31 Encounter for screening mammogram for malignant neoplasm of breast (principal)
CPT/HCPCS: 77063; 77067

== ENCOUNTER → 2023-10-15 | Outpatient (CLI) | payer OTHER, SELFPAY ==
--- OUTSIDE RECORDS SUMMARY | 2023-10-15 07:38 | XMS RPT_ITS | CCD ---
Author Name Unknown Address [address] [place] [address] Organization [facility] Results Test Name Value Interpretation Reference Range Facil ity Summary Purpose Family History No Family History Records Found Advance Directives No Advanced Directives Records Found Additional Source Comments INFORMATION SOURCE (unrecogn ized section and content) FOR RECORDS PERTAINING TO PATIENTS WHO ARE OR HAVE BEEN ENROLLED IN A CHEMICAL DEPENDENCY/SUBSTANCEABUSE PROGRAM, SOME INFORMATION MAY BE OMITTED. This clinical summary was aggregated from multiple sources. Caution should be exercised in using it in the provision of clinical care. This summary normalizes information from multiple sources, and as a consequence, information in this document may materially change the coding, format and clinical context of patient data. In addition, data may be omitted in some cases. CLINICAL DECISIONS SHOULD BE BASED ON THE PRIMARY CLINICAL RECORDS. [employer] provides no warranty or guarantee of the accuracy or completeness of information in this document.
[2023-10-15 08:13] LABS: Absolute Lymphocyte Count 2.31 X10^3/uL (0.83-4.51); Absolute Neutrophil Count 3.7 X10^3/uL (2.0-7.7); Basophil# 0.05 X10^3/uL; Basophil% 0.8 % (0-1); Eosinophil# 0.09 X10^3/uL; Eosinophils% 1.4 % (0-5); Hematocrit 38.6 % (37-47); Hemoglobin 11.9 g/dL (12.0-15.0); Lymphocyte # 2.31 X10^3/ul (0.83-4.51); Lymphocyte % 34.9 % (19-41); Mean Corp Hgb Conc 30.8 g/dL (32-36); Mean Corpuscular Hgb 25.4 pg (27.0-32.0); Mean Corpuscular Volume 82.5 fL (81-99); Mean Platelet Vol. 9.2 fl (6.2-12.0); Monocyte# 0.46 X10^3/uL; NRBC Flagged by Analyzer 0 % (0-5); Neutrophil # 3.68 X10^3/uL (2.7-7.7); Neutrophil % 55.6 % (47-70); Platelet Count 302 K/mm3 (150-450); RBC Distribution Width CV 14.2 % (11.6-14.6); RBC Distribution Width SD 42.5 fl (35.1-43.9); Red Blood Count 4.68 M/mm3 (4.2-5.4); White Blood Count 6.6 K/mm3 (4.4-11.0)
[2023-10-15 08:31] LABS: Hemoglobin A1c 5.8 % (3.8-5.6)
[2023-10-15 08:55] LABS: ALB/GLOB Ratio 1.1 RATIO (0.9-2.4); AST(SGOT) 21 U/L (15-37); Alanine Aminotransfer ALT/SGPT 22 U/L (13-56); Albumin, Serum 3.6 g/dL (3.2-5.0); Alkaline Phosphatase 72 U/L (45-117); Anion Gap 2 (5-15); BUN 21 mg/dL (7-18); BUN/Creat Ratio 25.6 RATIO (10-20); Chloride 109 mmol/L (98-107); Cholesterol 206 mg/dL (200); Creatinine, Serum 0.82 mg/dL (0.55-1.02); EST Glomerular Filtration Rate 79 mL/min (>60); Est Glom Filt Rate - Afr Amer 96 mL/min (>60); Globulin 3.4 g/dL (2.2-4.2); Glucose 100 mg/dL (74-106); High Density Lipoprotein 66 mg/dL; Potassium 4.1 mmol/L (3.5-5.1); Sodium Level 139 mmol/L (136-145); Triglycerides 80 mg/dL; Very Low Density Lipoprotein 16 mg/dL (5-40)
== END | disposition home or self-care (01) ==
LOC: LAB 07:21
PROVIDERS: PCP Family Medicine; Referring Provider Family Medicine; Visit Provider Family Medicine
DX: Z00.00 Encounter for general adult medical examination without abnormal findings (principal); Z51.81 Encounter for therapeutic drug level monitoring; R73.03 Prediabetes
CPT/HCPCS: 36415; 80053; 80061; 83036; 84443; 85025

== ENCOUNTER → 2023-10-18 | Outpatient (CLI) | payer OTHER, SELFPAY | END | disposition home or self-care (01) | LOC: RAD 15:27 | PROVIDERS: PCP Family Medicine; Referring Provider Chiropractor; Visit Provider Chiropractor | DX: M25.511 Pain in right shoulder (principal) | CPT/HCPCS: 72110; 73030 ==

== ENCOUNTER → 2023-11-17 | Outpatient (CLI) | payer OTHER, SELFPAY ==
[2023-11-23 11:09] LABS: Age Gdln ACOG Testing 30-65 (.); HPV APTIMA, High Risk Negative (Negative)
[2023-11-23 20:58] LABS: HPV Reflexed? YES, CHARGE PATIENT
== END | disposition home or self-care (01) ==
LOC: LABSPEC 11-18 09:48
PROVIDERS: PCP Family Medicine; Referring Provider Family Medicine; Visit Provider Family Medicine
DX: Z12.4 Encounter for screening for malignant neoplasm of cervix (principal)
CPT/HCPCS: 87624; 88175; G0145

== ENCOUNTER → 2023-12-10 | Outpatient (CLI) | payer OTHER, SELFPAY ==
--- NOTE | 2023-12-10 07:12 | BI_ITS ---
MAMMOGRAPHY - BILATERAL SCREENING REASON FOR EXAM: Female, 48 years old. Routine annual screening examination. PERTINENT HISTORY: Non-contributory. TECHNIQUE: Digital bilateral breast williams (3D mammographic acquisition) in the CC and MLO projections. 2-D mediolateral oblique (MLO) and craniocaudad (CC) views of both breasts were obtained. CAD: Full Field Digital Mammography with Computer Added Detection was performed. COMPARISON: Comparison is made with prior study dated July 17, 2022 and June 12, 2020. FINDINGS: Breast Composition: There are scattered areas of fibroglandular density. There are no dominant masses or suspicious calcifications. Stable small benign-appearing bilateral axillary lymph nodes. No other significant abnormalities are identified. There has been no significant change since the prior study. BI/SCRN MAMM (CAD)W/WILLIAMS BILAT IMPRESSION: Stable bilateral screening mammogram. Yearly follow-up mammogram recommended. (A) ASSESSMENT CATEGORY: BIRADS Category 2: Benign. A letter regarding these results will be sent to the patient by the facility within 30 days. Approximately 10% of breast cancers are not detected by mammography. A normal mammogram should not delay biopsy of a clinically suspicious abnormality. [id number] Electronically Signed: Arash Castaneda MD at 8:44 EDT ,
== END | disposition home or self-care (01) ==
LOC: OPBI 07:11
PROVIDERS: PCP Family Medicine; Referring Provider Family Medicine; Visit Provider Family Medicine
DX: Z12.31 Encounter for screening mammogram for malignant neoplasm of breast (principal)
CPT/HCPCS: 77063; 77067

== ENCOUNTER 2023-12-12 10:49 | Emergency (ER) | payer OTHER, SELFPAY ==
[2023-12-12 10:49] VITALS: BP 123/85; PULSE 76; RESP 18; TEMP 36.4; O2SAT 98; BMI 37.1
--- NOTE | 2023-12-12 10:55 | RAD_ITS ---
INDICATION: chest pain EXAMINATION/TECHNIQUE: X-RAY - XR Chest 1 View COMPARISON: No relevant prior comparison study available FINDINGS: LINES/DEVICES: None. LUNGS: No consolidation, edema or effusion. No pneumothorax. MEDIASTINUM AND CARDIOVASCULAR STRUCTURES: Cardiac silhouette not enlarged. Central airways and mediastinal contour are unremarkable. BONES AND SOFT TISSUES: Unremarkable. RAD/Chest 1 View (Portable) IMPRESSION: No radiographic evidence of acute cardiopulmonary disease. Electronically Signed: Elvis Scott MD at 12:25 EDT ,
--- NOTE | 2023-12-12 11:12 | NURSING ---
NO OLD EKGS
[2023-12-12 11:17] LABS: Absolute Lymphocyte Count 2.13 X10^3/uL (0.83-4.51); Basophil# 0.04 X10^3/uL; Basophil% 0.6 % (0-1); Eosinophil# 0.13 X10^3/uL; Eosinophils% 1.9 % (0-5); Hematocrit 39.7 % (37-47); Hemoglobin 12.5 g/dL (12.0-15.0); Lymphocyte # 2.13 X10^3/ul (0.83-4.51); Lymphocyte % 31.3 % (19-41); Mean Corp Hgb Conc 31.5 g/dL (32-36); Mean Corpuscular Hgb 26.1 pg (27.0-32.0); Mean Corpuscular Volume 82.9 fL (81-99); Mean Platelet Vol. 8.9 fl (6.2-12.0); Monocyte# 0.52 X10^3/uL; Monocyte% 7.6 % (0-10); NRBC Flagged by Analyzer 0 % (0-5); Neutrophil # 3.97 X10^3/uL (2.7-7.7); Neutrophil % 58.3 % (47-70); Platelet Count 305 K/mm3 (150-450); RBC Distribution Width CV 14.4 % (11.6-14.6); RBC Distribution Width SD 43.4 fl (35.1-43.9); Red Blood Count 4.79 M/mm3 (4.2-5.4); White Blood Count 6.8 K/mm3 (4.4-11.0)
--- NOTE | 2023-12-12 11:23 | EDS_ITS ---
HPI <XIOMARA Womack - Last Filed: 12/12/23 14:04> History of Present Illness Chief Complaint: Palpitations Narrative Narrative: Patient presenting today due to palpitations that occurred this morning while she was at [employer]. She reports that she was wearing her Apple Watch which told her she was in atrial fibrillation. She has never had any arrhythmia. She reports that she had a few moments of midsternal chest tightness and did feel slightly short of breath but this has improved. She denies any history of blood clots or recent surgery/procedures/travel/immobilization. She reports that she is healthy otherwise and does not have any cardiac history. She denies any fevers, chills, abdominal pain, nausea, and vomiting. PFSH <XIOMARA Womack - Last Filed: 12/12/23 14:04> [facility] Medical History Acid reflux of child Heart murmur Pre-diabetes Home Medications ropinirole 1 mg tablet 1 mg PO QHS 09/24/17 [History Last Taken Unknown] albuterol sulfate 90 mcg/actuation aerosol inhaler (Ventolin HFA) 2 puff inhalation Q4H PRN shortness of breath or wheezing #1 device 06/13/18 [Rx Last Taken 06/09/19] omeprazole 40 mg capsule,delayed release 40 mg PO DAILY 04/28/19 [History Last Taken 06/02/19] metformin 1,000 mg tablet 1,000 mg PO DAILY 10/20/23 [History Last Taken Unknown] Allergy/AdvReac Type Severity Reaction Status Date / Time Penicillins Allergy Rash Verified 12/09/23 16:23 Family History Father Hypertension High cholesterol Mother Graves disease Hypertension High cholesterol Surgical History History of eyelid surgery Hx of dilation and curettage Hx of tonsillectomy Social History Smoking Status: Never smoker second hand exposure: No alcohol intake: never substance use type: does not use caffeine: Yes what type of physical activity do you participate in: walking, running, bicycling and weight training frequency: 3-4 times per week ROS <XIOMARA Womack - Last Filed: 12/12/23 14:04> ROS ED Constitutional Constitutional ED: Denies chills or fever(s) Cardiovascular Cardiovascular: Reports palpitations and other Details: Chest tightness ; Denies chest pain Respiratory/Chest Respiratory/Chest: Reports dyspnea; Denies cough Gastrointestinal Gastrointestinal: Denies abdominal pain, nausea or vomiting Neurologic Neurologic: Denies weakness EXAM <XIOMARA Womack Last Filed: 12/12/23 14:04> Physical Exam Const Vital Signs: 12/12/23 10:49 12/12/23 11:30 12/12/23 11:49 Temperature 97.6 F L Temperature Source Temporal Pulse Rate 76 67 Respiratory Rate 18 18 Blood Pressure 123/85 H 119/87 H Blood Pressure Mean 97 97 Pulse Ox 98 97 Oxygen Delivery Method Room Air Room Air Room Air 12/12/23 12:00 12/12/23 13:00 12/12/23 14:03 Temperature 97 F L Temperature Source Pulse Rate 86 65 74 Respiratory Rate 18 18 16 Blood Pressure 128/57 H 109/72 112/81 H Blood Pressure Mean 80 84 91 Pulse Ox 99 98 98 Oxygen Delivery Method Room Air Room Air Positive well nourished, well developed and no apparent distress General Appearance ED: well developed HEENT Reports normocephalic and head/scalp atraumatic Mouth ED: Yes moist mucous membranes normal Eyes PERRL and EOMs intact bilaterally Neck full ROM and supple Chest Wall inspection of chest normal Resp normal respiratory effort and clear to auscultation bilaterally Cardio regular rate and regular rhythm GI soft to palpation, non-tender, non-distended and no masses Back/Spine normal ROM and normal to inspection Extremity normal to inspection and full ROM Neuro oriented x3, CN's II-XII intact bilaterally, moves all extremities, no focal motor deficits and no sensory deficits noted Sensorium / Orientation: awake and alert Psych mental status grossly normal and thought process normal Skin no rashes or lesions noted and no wounds <Dr. Miki Verduzco DO - Last Filed: 12/12/23 17:20> Physical Exam Const Vital Signs: 12/12/23 10:49 12/12/23 11:30 12/12/23 11:49 Temperature 97.6 F L Temperature Source Temporal Pulse Rate 76 67 Respiratory Rate 18 18 Blood Pressure 123/85 H 119/87 H Blood Pressure Mean 97 97 Pulse Ox 98 97 Oxygen Delivery Method Room Air Room Air Room Air 12/12/23 12:00 12/12/23 13:00 12/12/23 14:03 Temperature 97 F L Temperature Source Pulse Rate 86 65 74 Respiratory Rate 18 18 16 Blood Pressure 128/57 H 109/72 112/81 H Blood Pressure Mean 80 84 91 Pulse Ox 99 98 98 Oxygen Delivery Method Room Air Room Air [facility] <XIOMARA Womack - Last Filed: 12/12/23 14:04> [facility] Narrative Medical decision making narrative: Patient presenting today due to palpitations that occurred this morning while she was at [employer]. Her Apple Watch told her she was in atrial fibrillation. She is well-appearing and in no acute distress. She did experience chest tightness and felt short of breath but reports she is feeling improved. She reports that she was also anxious after reading that on her watch. I did review the Apple Watch, she had been in sinus rhythm there was a second or 2 where the rhythm appeared irregular but then she went back into sinus rhythm. Patient is planning on running a marathon in 2 days and has been training, she has not felt short of breath or chest pain with running. She has a low Wells score, low suspicion for PE. Cardiac workup was obtained, CBC is unremarkable, BMP shows a BUN of 20, nonsignificant delta troponin. Her EKG here is sinus rhythm with occasional PACs. I encouraged her to follow-up with her PCP, she will be discharged in stable condition. Lab Data Attestation: I reviewed the patient's lab results. Labs: Laboratory Results - last 24 hr 12/12/23 12/12/23 11:10 13:12 WBC 6.8 RBC 4.79 Hgb 12.5 Hct 39.7 MCV 82.9 MCH 26.1 L MCHC 31.5 L RDW Std Deviation 43.4 RDW Coeff of Ramiro 14.4 Plt Count 305 MPV 8.9 Immature Gran % (Auto) 0.300 Neut % (Auto) 58.3 Lymph % (Auto) 31.3 Morrill % (Auto) 7.6 Eos % (Auto) 1.9 Baso % (Auto) 0.6 Absolute Neuts (auto) 4.0 Absolute Lymphs (auto) 2.13 Nucleated RBC % 0 Sodium 142 Potassium 3.7 Chloride 108 H Carbon Dioxide 26.0 Anion Gap 8 BUN 20 H Creatinine 0.83 Estim Creat Clear Calc 102.31 Est GFR (MDRD) Af Amer 95 Est GFR (MDRD) Non-Af 78 BUN/Creatinine Ratio 24.2 H Glucose 114 H Calcium 9.1 Troponin I High Sens 9 8 Radiography X-Ray: Read by ED Physician Diagnostic Testing: Clinical Impression(s) from Imaging Studies Chest X-Ray 12/12/23 10:55 IMPRESSION: No radiographic evidence of acute cardiopulmonary disease. Electronically Signed: Elvis Scott MD at 12:25 EDT Reading Location ID and State: [facility] / [place] Tel , Service support , EKG Initial EKG: Comments: 83 bpm, sinus rhythm with PACs, no ST elevation, no signs of cardiac ischemia <Dr. Miki Verduzco, DO - Last Filed: 12/12/23 17:20> [facility] Lab Data Labs: Laboratory Results - last 24 hr 12/12/23 12/12/23 11:10 13:12 WBC 6.8 RBC 4.79 Hgb 12.5 Hct 39.7 MCV 82.9 MCH 26.1 L MCHC 31.5 L RDW Std Deviation 43.4 RDW Coeff of Ramiro 14.4 Plt Count 305 MPV 8.9 Immature Gran % (Auto) 0.300 Neut % (Auto) 58.3 Lymph % (Auto) 31.3 Morrill % (Auto) 7.6 Eos % (Auto) 1.9 Baso % (Auto) 0.6 Absolute Neuts (auto) 4.0 Absolute Lymphs (auto) 2.13 Nucleated RBC % 0 Sodium 142 Potassium 3.7 Chloride 108 H Carbon Dioxide 26.0 Anion Gap 8 BUN 20 H Creatinine 0.83 Estim Creat Clear Calc 102.31 Est GFR (MDRD) Af Amer 95 Est GFR (MDRD) Non-Af 78 BUN/Creatinine Ratio 24.2 H Glucose 114 H Calcium 9.1 Troponin I High Sens 9 8 Radiography Diagnostic Testing: Clinical Impression(s) from Imaging Studies Chest X-Ray 12/12/23 10:55 IMPRESSION: No radiographic evidence of acute cardiopulmonary disease. Electronically Signed: Elvis Scott MD at 12:25 EDT , I have personally reviewed the patient's chest x-ray. Chest x-ray is unremarkable for pulmonary edema, pneumothorax, pneumonia or focal c ardiopulmonary abnormality. Treatment and Re-Evaluation :: ED attending note: I evaluated the patient in conjunction with the CIRA. I agree with his/her statements and above findings. I have personally performed a face to face assessment of the patient and have reviewed the CIRA Note. I performed a substantive portion of the visit including all aspects of the following. I personally saw the patient performed chart review, physical exam, reviewed labs, imaging (if obtained), and formulated a treatment and management plan. This note was generated with [employer] dictation software. It may contain incorrect words, spelling, and punctuation that were not noted in review of the chart prior to signing. Discharge Plan Triage Chief Complaint: Palpitations ED Midlevel Provider: Roma Fernandez ED Provider: Miki Verduzco Dx/Rx/DC Orders Clinical Impression: Heart palpitations Instructions: ED Palpitations Prescriptions: No Action ropinirole 1 mg tablet 1 mg PO QHS omeprazole 40 mg capsule,delayed release(DR/EC) 40 mg PO DAILY metformin 1,000 mg tablet 1,000 mg PO DAILY Ventolin HFA 90 mcg/actuation HFA aerosol inhaler 2 puff INHALATION Q4H PRN (Reason: shortness of breath or wheezing) Qty: 1 6RF Primary Care Provider: Juliann Lowery Referrals: Juliann Lowery DO [Primary Care Provider] - 5-7 Days Activity Restrictions/Additional Instructions: Follow-up with PCP and return for any worsening of your symptoms. Disposition Disposition: Home, Self Care Discharge Date/Time: 12/12/23 14:04
[2023-12-12 11:35] LABS: Anion Gap 8 (5-15); BUN 20 mg/dL (7-18); BUN/Creat Ratio 24.2 RATIO (10-20); Calcium,Total 9.1 mg/dL (8.5-10.1); Chloride 108 mmol/L (98-107); Creatinine, Serum 0.83 mg/dL (0.55-1.02); EST Glomerular Filtration Rate 78 mL/min (>60); Est Glom Filt Rate - Afr Amer 95 mL/min (>60); Estimated Creatinine Clearance 102.31 ml/min; Glucose 114 mg/dL (74-106); Potassium 3.7 mmol/L (3.5-5.1); Sodium Level 142 mmol/L (136-145); Troponin-I HS (w/2H Reflex) 9 pg/mL (3.0-54.0)
[2023-12-12 11:49] VITALS: BP 119/87; PULSE 67; RESP 18; O2SAT 97
[2023-12-12 12:00] VITALS: BP 128/57; PULSE 86; RESP 18; O2SAT 99
[2023-12-12] MEDS: 0.9% Normal Saline (500mL Bag) 500 ML 999 ML IV (12:27)
[2023-12-12 13:00] VITALS: BP 109/72; PULSE 65; RESP 18; O2SAT 98
[2023-12-12 13:14] LABS: Reflex Troponin-HS? (from REC) Y
[2023-12-12 13:39] LABS: Troponin-I HS 8 pg/mL (3.0-54.0)
[2023-12-12 14:03] VITALS: BP 112/81; PULSE 74; RESP 16; TEMP 36.1; O2SAT 98
== END 2023-12-12 14:04 | disposition home or self-care (01) ==
PROVIDERS: Emergency Provider Emergency Medicine; PCP Family Medicine; Visit Provider Emergency Medicine
DX: R00.2 Palpitations (principal); K21.9 Gastro-esophageal reflux disease without esophagitis; R06.00 Dyspnea, unspecified; R07.89 Other chest pain
CPT/HCPCS: 71045; 80048; 84484; 85025; 93005; 96360; 99283; J7030; A4216

== ENCOUNTER → 2025-07-06 | Outpatient (CLI) | payer OTHER, SELFPAY ==
--- NOTE | 2025-07-06 15:23 | BI_ITS ---
EXAM: SCRN MAMM (CAD)W/WILLIAMS BILAT DATE: 07/06/2025 CLINICAL HISTORY: F, Age 50 y/o , SCREENING TECHNIQUE: Procedure Code: [id number] Modality: MG Procedure: SCRN MAMM (CAD)W/WILLIAMS BILAT COMPARISON: Prior exam(s) dated 12/10/2023 and 07/17/2022. FINDINGS: TISSUE DENSITY: There are scattered areas of fibroglandular density. Bilateral Breast Mammographic Findings: No suspicious masses, suspicious clustered microcalcifications, architectural distortion or secondary signs of malignancy is identified in either breast. Stable nodular masslike densities are seen in both breasts. Benign round calcifications are seen in both breasts. BI/SCRN MAMM (CAD)W/WILLIAMS BILAT IMPRESSION: Benign screening mammogram OVERALL FINAL ASSESSMENT BI-RADS 2: BENIGN RECOMMENDATION: Routine annual follow-up in 1 Year Additional Recommendation none A letter with findings and recommendations will be mailed to the patient. Reading Location: [id number]
--- OUTSIDE RECORDS SUMMARY | 2025-07-06 15:42 | XMS RPT_ITS | CCD ---
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 Juliann Lowery Primary Care Provider Dr. Juliann Lowery Referring Provider Dr. Nubia Larson Attending Provider Dr. Eduar Robert Attending Provider Malys, Juliann Referring Unavailable Malys, Juliann Primary Care Unavailable Dossi, Nubia Attending Unavailable Malys, Juliann Primary Care Unavailable Dossi, Nubia Attending Unavailable Malys, Juliann Referring Unavailable Malys, Juliann Referring Unavailable Malys, Juliann Primary Care Unavailable Malys, Juliann Attending Unavailable Malys, Juliann Primary Care Unavailable Malys, Juliann Attending Unavailable Malys, Juliann Referring Unavailable Malys, Juliann Primary Care Unavailable Dossi, Nubia Attending Unavailable Dossi, Nubia Referring Unavailable Malys, Juliann Referring Unavailable Malys, Juliann Attending Unavailable Malys, Juliann Primary Care Unavailable Malys, Juliann Primary Care Unavailable Miki Verduzco Attending Unavailable Eduar Robert Attending Unavailable Malys, Juliann Primary Care Unavailable Malys, Juliann Referring Unavailable Malys, Juliann Primary Care Unavailable Dossi, Nubia Attending Unavailable Malys, Juliann Referring Unavailable Charlene, Harinder Attending Unavailable Malys, Juliann Primary Care Unavailable Malys, Juliann Referring Unavailable Malys, Juliann Primary Care Unavailable Dossi, Nubia Attending Unavailable Malys, Juliann Referring Unavailable Malys, Juliann Primary Care Unavailable Dossi, Nubia Attending Unavailable Allergies Allergy Classification Reported Allergen(s) Allergy Type Date of Onset Reaction(s) Facility (7 sources) Penicillins Allergy to substance 05-19-2021 [facility] (1 source) Penicillins Drug allergy (disorder) 12-09-2023 [facility] Repository Medications Current Medications Medication Drug Class(es) Dates Sig (Normalized) Sig (Original) [id number] 200 actuat albuterol 0.09 mg/actuat metered dose inhaler (14 sources) beta2-Adrenergic Agonist Start: 06-13-2018 End: 06-13-2018 take 1 puff(s) by inhalation every four hours Albuterol Sulfate (Ventolin Hfa) 90 mcg/actuation HFA aerosol inhaler Active 2 PUFF INHALATION Q4H June 13, 2018 12:41pm metFORMIN hydrochloride 1000 mg oral tablet (11 sources) Biguanide Start: 10-20-2023 take 1000 mg by mouth once daily Metformin Active 1000 MG PO DAILY October 20, 2023 12:00am Start: 09-24-2017 End: 08-26-2023 take 1000 mg by mouth once daily Metformin Discontinued 1000 MG PO DAILY September 24, 2017 1:00am August 26, 2023 4:59pm omeprazole 40 mg delayed release oral capsule (14 sources) Proton Pump Inhibitor Start: 04-28-2019 take 40 mg by mouth once daily Omeprazole Active 40 MG PO DAILY April 28, 2019 12:00am Start: 09-24-2017 End: 04-28-2019 take 10 mg by mouth once Omeprazole Discontinued 10 M G PO ONCE September 24, 2017 1:00am April 28, 2019 9:40am rOPINIRole 1 mg oral tablet (7 sources) Nonergot Dopamine Agonist Start: 09-24-2017 take 1 mg by mouth at bedtime Ropinirole Active 1 MG PO AT BEDTIME September 24, 2017 1:00am Completed/Discontinued Medications Medication Drug Class(es) Dates Sig (Normalized) Sig (Original) azithromycin 250 mg oral tablet (7 sources) Macrolide Antimicrobial Start: 11-12-2018 End: 04-09-2019 Azithromycin Discontinued 0 PO .COMPLEX November 12, 2018 12:00am April 09, 2019 1:39pm take 500 mg today (day 1), then 250 mg for 4 days (days 2-5) PO 24 hr buPROPion hydrochloride 150 mg extended release oral tablet (7 sources) Aminoketone Start: 09-24-2017 End: 10-20-2023 take 1 tablet by mouth once daily in the morning Bupropion Hcl (Wellbutrin Xl) 150 mg tablet extended release 24 hr Discontinued 150 MG PO EVERY MORNING September 24, 2017 1:00am October 20, 2023 4:03pm celecoxib 100 mg oral capsule (4 sources) Nonsteroidal Anti-inflammatory Drug Start: 10-20-2023 End: 12-12-2023 take 1 capsule by mouth twice daily Celecoxib (Celebrex) 100 mg capsule Discontinued 100 MG PO TWICE A DAY October 20, 2023 12:00am December 12, 2023 11:32am 12 hr guaiFENesin 1200 mg extended release oral tablet (7 sources) Start: 05-19-2021 End: 10-20-2023 take 1 tablet by mouth twice daily, then take 1 tablet by mouth every twelve hours Guaifenesin (Mucinex) 1,200 mg Tablet Extended Release 12hr Discontinued 1200 MG PO TWICE A DAY May 19, 2021 12:00am October 20, 2023 4:04pm montelukast 10 mg oral tablet (4 sources) Leukotriene Receptor Antagonist Start: 08-26-2023 End: 10-20-2023 take 1 tablet by mouth once daily Montelukast (Singulair) 10 mg tablet Discontinued 10 MG PO DAILY August 26, 2023 1:00am October 20, 2023 4:04pm predniSONE 10 mg oral tablet (20 sources) Start: 05-18-2021 End: 08-26-2023 Prednisone Discontinued 10 MG PO .COMPLEX May 18, 2021 12:00am August 26, 2023 4:59pm Take 4 pills for 3 days, 3 pills for 3 days, 2 pills for 3 days, take 1 pill for 3 days Start: 01-06-2020 End: 08-16-2020 take 10 mg by mouth three times daily Prednisone Discontinued 10 MG PO THREE TIMES A DAY January 06, 2020 12:00am August 16, 2020 9:08am Start: 11-25-2018 End: 04-28-2019 take 10 mg by mouth twice daily Prednisone Discontinued 10 MG PO TWICE A DAY November 25, 2018 12:00am April 28, 2019 9:40am Start: 03-18-2018 End: 03-23-2018 take 60 mg by mouth once daily Prednisone Discontinued 60 MG PO daily 15 March 18, 2018 12:00am March 23, 2018 12:06am tobramycin 3 mg/ml ophthalmic solution (7 sources) Aminoglycoside Antibacterial Start: 09-24-2017 End: 04-28-2019 take 0.3 drop(s) into the eye(s) every two hours Tobramycin (Tobrex) 0.3 % drops Discontinued 1 DRP OPHTHALMIC Q2H 5 September 24, 2017 1:00am April 28, 2019 9:40am To left eye while awake for 3 days Problems Active Problems Problem Classification Problem Date Documented Date Episodic/Chronic Cardiac dysrhythmias (2 sources) Palpitations; Translations: [Palpitations] Onset: 4 12-12-2023 Episodic Esophageal disorders (7 sources) Gastroesophageal reflux disease; Translations: [Gastro-esophageal reflux disease without esophagitis] 05-01-2019 Chronic Heart valve disorders (7 sources) Heart murmur; Translations: [Cardiac murmur, unspecified] 04-28-2019 Episodic Inflammation; infection of eye (except that caused by tuberculosis or sexually transmitteddisease) (7 sources) Conjunctivitis; Translations: [Unspecified conjunctivitis] 09-24-2017 Episodic Other bone disease and musculoskeletal deformities (12 sources) Segmental and somatic dysfunction; Translations: [Segmental and somatic dysfunction of lumbar region] 08-27-2023 Episodic Other bone disease and musculoskeletal deformities (16 sources) Segmental and somatic dysfunction of lumbar region; Translations: [Nonallopathic lesions, lumbar region] Onset: 4 08-26-2023 Episodic Other bone disease and musculoskeletal deformities (16 sources) Segmental and somatic dysfunction of pelvic region; Translations: [Nonallopathic lesions, pelvic region] Onset: 4 08-26-2023 Episodic Other bone disease and musculoskeletal deformities (12 sources) Segmental and somatic dysfunction of thoracic region; Translations: [Nonallopathic lesions, thoracic region] Onset: 4 09-13-2023 Episodic Other lower respiratory disease (14 sources) Cough; Translations: [Cough] 05-18-2021 Episodic Other non-traumatic joint disorders (5 sources) Pain in right shoulder; Translations: [Right shoulder pain] Onset: 4 10-18-2023 Episodic Other nutritional; endocrine; and metabolic disorders (7 sources) Body mass index 30+ - obesity; Translations: [Body mass index (BMI) 36.0-36.9, adult] 05-19-2021 Chronic Other screening for suspected conditions (not mental disorders or infectious disease) (2 sources) Encounter for screening mammogram for malignant neoplasm of breast; Translations: [Encounter for screening for malignant neoplasm of cervix] Onset: 4 Episodic Residual codes; unclassified (7 sources) History of eyelid surgery; Translations: [Other specified postprocedural states] 04-28-2019 Episodic Spondylosis; intervertebral disc disorders; other back problems (20 sources) Backache; Translations: [Dorsalgia, unspecified] Onset: 4 08-27-2023 Episodic Sprains and strains (6 sources) Sprain of acromioclavicular ligament; Translations: [Sprain of right acromioclavicular joint, initial encounter] 10-21-2023 Episodic Superficial injury; contusion (7 sources) Corneal abrasion; Translations: [Injury of conjunctiva and corneal abrasion without foreign body, unspecified eye, initial encounter] 09-24-2017 Episodic Viral infection (7 sources) Disease caused by 2019-nCoV; Translations: [COVID-19] 05-18-2021 Episodic Past or Other Problems Problem Classification Problem Date Documented Da te Episodic/Chronic Unclassified (7 sources) of child 02-19-2022 Results Test Name Value Interpretation Reference Range Facility Absolute lymphocyte countOrd ered By: ED PROVIDER on 12-12-2023 Lymphocytes Auto (Unsp spec) [#/Vol] 2.13 10*3/uL 0.83-4.51 [facility] Automated lymphocyte count a s percentage of total leukocytesOrdered By: ED PROVIDER on 12-12-2023 Lymphocytes/100 WBC Auto (Unsp spec) 31.3 % 19-41 [facility] Basic Metabolic Profile (BMP )on 12-12-2023 BUN/CRE 24.2 RATIO High 10-20 [facility] Comment on above: Order Comment: 1 Y Performed By: #### L 500.2500, L501.5425, L100.0100 #### [facility] [address] [place], [address] CA,Total 9.1 mg/dL Normal 8.5-10.1 [facility] Comment on above: Order Comment: 1 Y Performed By: #### L 500.2500, L501.5425, L100.0100 #### [facility] [address] [place], [address] Chloride [Moles/Vol] 108 mmol/L High 98-107 [facility] Comment on above: Order Comment: 1 Y Performed By: #### L 500.2500, L501.5425, L100.0100 #### [facility] [address] [place], [address] CO2 [Moles/Vol] 26.0 mmol/L Normal 21.0-32.0 [facility] Comment on above: Order Comment: 1 Y Performed By: #### L 500.2500, L501.5425, L100.0100 #### [facility] [address] [place], [address] Creatinine [Mass/Vol] 0.83 mg/dL Normal 0.55-1.02 [facility] Comment on above: Order Comment: 1 Y Result Comment: The validity of the calculated GFR GFRAA in patients over 70 years has not been determined. Clinical correlation is essential. Performed By: #### L 500.2500, L501.5425, L100.0100 #### [facility] [address] [place], [address] ECRCL 102.31 ml/min Normal [facility] Comment on above: Order Comment: 1 Y Performed By: #### L 500.2500, L501.5425, L100.0100 #### [facility] [address] [place], [address] EST GFR - AA 95 mL/min Normal >60 [facility] Comment on above: Order Comment: 1 Y Result Comment: Afri can Marshallese GFR Calc Performed By: #### L 500.2500, L501.5425, L100.0100 #### [facility] [address] [place], [address] GAP 8 Normal 5-15 [facility] Comment on above: Order Comment: 1 Y Performed By: #### L 500.2500, L501.5425, L100.0100 #### [facility] [address] [place], [address] GFR/1.73 sq M.predicted among non-blacks MDRD (S/P/Bld) [Vol rate/Area] 78 mL/min/{1.73_m2} Normal >60 [facility] Comment on above: Order Comment: 1 Y Result Comment: Non- GFR Calc Performed By: #### L 500.2500, L501.5425, L100.0100 #### [facility] [address] [place], [address] Glucose [Mass/Vol] 114 mg/dL High 74-[address] [facility] Comment on above: Order Comment: 1 Y Result Comment: Fast ing Glucose result from 100 to 125 mg/dL suggests IMPAIRED HOMEOSTASIS per A.D.A. criteria. Performed By: #### L 500.2500, L501.5425, L100.0100 #### [facility] [address] [place], [address] Potassium [Moles/Vol] 3.7 mmol/L Normal 3.5-5.1 [facility] Comment on above: Order Comment: 1 Y Performed By: #### L 500.2500, L501.5425, L100.0100 #### [facility] [address] [place], [address] Sodium [Moles/Vol] 142 mmol/L Normal 136-[address] [facility] Comment on above: Order Comment: 1 Y Performed By: #### L 500.2500, L501.5425, L100.0100 #### [facility] [address] [place], [address] Urea nitrogen [Mass/Vol] 20 mg/dL High 7-18 [facility] Comment on above: Order Comment: 1 Y Performed By: #### L 500.2500, L501.5425, L100.0100 #### [facility] [address] [place], [place], [id number] Basophil percentageOrdered B y: ED PROVIDER on 12-12-2023 Basophils/100 WBC (Bld) 0.6 % 0-1 [facility] Eosinophils/100 WBC (Bld) 1.9 % 0-5 [facility] Hemoglobin (Bld) [Mass/Vol] 12.5 g/dL 12.0-15.0 [facility] Monocytes/100 WBC (Bld) 7.6 % 0-10 [facility] Neutrophils (Bld) [#/Vol] 4.0 10*3/uL 2.0-7.7 [facility] Neutrophils/100 WBC (Bld) 58.3 % 47-70 [facility] WBC (Bld) [#/Vol] 6.8 10*3/uL 4.4-11.[address] [facility] Basophil percentageOrdered B y: Miki Dax on 12-12-2023 Chloride [Moles/Vol] 108 mmol/L 98-107 [facility] Glucose [Mass/Vol] 114 mg/dL 74-[address] [facility] Comment on above: Fasting Glucose resu lt from 100 to 125 mg/dL suggests IMPAIRED HOMEOSTASIS per A.D.A. criteria. Potassium [Moles/Vol] 3.7 mmol/L 3.5-5.1 [facility] Sodium [Moles/Vol] 142 mmol/L 136-[address] [facility] CBC W/Diff, Automatedon 11-30 Absolute Lymph 2.13 X10 3/uL Normal 0.83-4.51 [facility] Comment on above: Performed By: #### L 500.2500, L501.5425, L100.0100 #### [facility] [address] [place], [place], [id number] Absolute Neut 4.0 X10 3/uL Normal 2.0-7.7 [facility] Comment on above: Performed By: #### L 500.2500, L501.5425, L100.0100 #### [facility] [address] [place], [address] Basophils/100 WBC (Bld) 0.6 % Normal 0-1 [facility] Comment on above: Performed By: #### L 500.2500, L501.5425, L100.0100 #### [facility] [address] [place], [address] Eosinophils/100 WBC (Bld) 1.9 % Normal 0-5 [facility] Comment on above: Performed By: #### L 500.2500, L501.5425, L100.0100 #### [facility] [address] [place], [address] Erythrocyte distribution width (RBC) [Ratio] 14.4 % Normal 11.6-14.6 [facility] Comment on above: Performed By: #### L 500.2500, L501.5425, L100.0100 #### [facility] [address] [place], [address] Hematocrit (Bld) [Volume fraction] 39.7 % Normal 37-47 [facility] Comment on above: Performed By: #### L 500.2500, L501.5425, L100.0100 #### [facility] [address] [place], [address] Hemoglobin (Bld) [Mass/Vol] 12.5 g/dL Normal 12.0-15.0 [facility] Comment on above: Performed By: #### L 500.2500, L501.5425, L100.0100 #### [facility] [address] [place], [address] IG% 0.300 Normal 0.0-0.9 [facility] Comment on above: Result Comment: IG% - Immature Granulocytes (promyelocytes, myelocytes and metamyelocytes) > 1% indicates that a LEFT SHIFT is Present. Performed By: #### L 500.2500, L501.5425, L100.0100 #### [facility] [address] [place], [address] Lymphocytes/100 WBC (Bld) 31.3 % Normal 19-41 [facility] Comment on above: Performed By: #### L 500.2500, L501.5425, L100.0100 #### [facility] [address] [place], [address] MCH (RBC) [Entitic mass] 26.1 pg Low 27.0-32.0 [facility] Comment on above: Performed By: #### L 500.2500, L501.5425, L100.0100 #### [facility] [address] [place], [address] MCHC (RBC) [Mass/Vol] 31.5 g/dL Low 32-36 [facility] Comment on above: Performed By: #### L 500.2500, L501.5425, L100.0100 #### [facility] [address] [place], [address] MCV (RBC) [Entitic vol] 82.9 fL Normal 81-99 [facility] Comment on above: Performed By: #### L 500.2500, L501.5425, L100.0100 #### [facility] [address] [place], [address] Monocytes/100 WBC (Bld) 7.6 % Normal 0-10 [facility] Comment on above: Performed By: #### L 500.2500, L501.5425, L100.0100 #### [facility] [address] [place], [address] Neutrophils/100 WBC (Bld) 58.3 % Normal 47-70 [facility] Comment on above: Performed By: #### L 500.2500, L501.5425, L100.0100 #### [facility] [address] [place], [address] Nucleated RBC (Bld) [#/Vol] 0 10*3/uL Normal 0-5 [facility] Comment on above: Performed By: #### L 500.2500, L501.5425, L100.0100 #### [facility] [address] [place], [address] Platelet mean volume (Bld) [Entitic vol] 8.9 fL Normal 6.2-12.0 [facility] Comment on above: Performed By: #### L 500.2500, L501.5425, L100.0100 #### [facility] [address] [place], [address] Platelets (Bld) [#/Vol] 305 10*3/uL Normal 150-450 [facility] Comment on above: Performed By: #### L 500.2500, L501.5425, L100.0100 #### [facility] [address] [place], [address] RBC (Bld) [#/Vol] 4.79 10*6/uL Normal 4.2-5.4 [facility] Comment on above: Performed By: #### L 500.2500, L501.5425, L100.0100 #### [facility] [address] [place], [address] RDW SD 43.4 fl Normal 35.1-43.9 [facility] Comment on above: Performed By: #### L 500.2500, L501.5425, L100.0100 #### [facility] [address] [place], [address] WBC (Bld) [#/Vol] 6.8 10*3/uL Normal 4.4-11.[address] [facility] Comment on above: Performed By: #### L 500.2500, L501.5425, L100.0100 #### [facility] [address] [place], [address] Chest 1 View (Portable)on Chest 1 View (Portable) [facility] Imaging Services [address] [place] [address] Chest 1 View (Portable) MR#: [id number] Acct: [id number] Name: JACQUELINE ESQUIVEL Rep #: [id number] : 1975 F 48 From: Elvis Wang PCP: Dr. Juliann Lowery DO Status: REG ER Study: Chest 1 View (Portable) Date of Exam: 12/12/23 Exam# [id number] Ordering Dr: Miki Verduzco DO [id number] INDICATION: chest pain EXAMINATION/TECHNIQUE : X-RAY - XR Chest 1 View COMPARISON: No relevant prior comparison study available __ FINDINGS: LINES/DEVICES: None. LUNGS: No consolidation, edema or effusion. No pneumothorax. MEDIASTINUM AND CARDIOVASCULAR STRUCTURES: Cardiac silhouette not enlarged. Central airways and mediastinal contour are unremarkable. BONES AND SOFT TISSUES: Unremarkable. RAD/Chest 1 View (Portable) IMPRESSION: No radiographic evidence of acute cardiopulmonary disease. Electronically Signed: Elvis Scott MD at 12:25 EDT , CC: Dr. Juliann Lowery DO; Dr. Miki Verduzco DO [employer]: Signed Normal [facility] Determination of erythrocyte mean corpuscular volume (MCV)Ordered By: ED PROVIDER on 12-12-2023 MCV (RBC) [Entitic vol] 82.9 fL 81-99 [facility] Emergency Department Summary on 12-12-2023 Emergency Department Summary [facility] Medical Records Department [address] [place] [address] Emergency Department Summary 12/12/23 MR#: [id number] Acct: [id number] Name: JACQUELINE ESQUIVEL Rep #: [id number] : 1975 48 From: Roma SOLANO PCP: Dr. Juliann Lowery, DO Status:DEP ER Location: ED HPI History of Present Illness Chief Complaint: Palpitations Narrative Narrative: Patient presenting today due to palpitations that occurred this morning while she was at [employer]. She reports that she was wearing her Apple Watch which told her she was in atrial fibrillation. She has never had any arrhythmia. She reports that she had a few moments of midsternal chest tightness and did feel slightly short of breath but this has improved. She denies any history of blood clots or recent surgery/procedures/tr berna/immobilization. She reports that she is healthy otherwise and does not have any cardiac history. She denies any fevers, chills, abdominal pain, nausea, and vomiting. [facility] Medical History Acid reflux of child Heart murmur Pre-diabetes Home Medications ropinirole 1 mg tablet 1 mg PO QHS 09/24/17 [History Last Taken Unknown] albuterol sulfate 90 mcg/actuation aerosol inhaler (Ventolin HFA) 2 puff inhalation Q4H PRN shortness of breath or wheezing #1 device 06/13/18 [Rx Last Taken 06/09/19] omeprazole 40 mg capsule,delayed release 40 mg PO DAILY 04/28/19 [History Last Taken 06/02/19] metformin 1,000 mg tablet 1,000 mg PO DAILY 10/20/23 [History Last Taken Unknown] Allergy/AdvReac Type Severity Reaction Status Date / Time Penicillins Allergy Rash Verified 12/09/23 16:23 Family History Father Hypertension High cholesterol Mother Graves disease Hypertension High cholesterol Surgical History History of eyelid surgery Hx of dilation and curettage Hx of tonsillectomy Social History Smoking Status: Never smoker second hand exposure: No alcohol intake: never substance use type: does not use caffeine: Yes what type of physical activity do you participate in: walking, running, bicycling and weight training frequency: 3-4 times per week ROS ROS ED Constitutional Constitutional ED: Denies chills or fever(s) Cardiovascular Cardiovascular: Reports palpitations and other Details: Chest tightness ; Denies chest pain Respiratory/Chest Respiratory/Chest: Reports dyspnea; Denies cough Gastrointestinal Gastrointestinal: Denies abdominal pain, nausea or vomiting Neurologic Neurologic: Denies weakness EXAM Physical Exam Const Vital Signs: 12/12/23 10:49 12/12/23 11:30 12/12/23 11:49 Temperature 97.6 F L Temperature Source Temporal Pulse Rate 76 67 Respiratory Rate 18 18 Blood Pressure 123/85 H 119/87 H Blood Pressure Mean 97 97 Pulse Ox 98 97 Oxygen Delivery Method Room Air Room Air Room Air 12/12/23 12:00 12/12/23 13:00 12/12/23 14:03 Temperature 97 F L Temperature Source Pulse Rate 86 65 74 Respiratory Rate 18 18 16 Blood Pressure 128/57 H 109/72 112/81 H Blood Pressure Mean 80 84 91 Pulse Ox 99 98 98 Oxygen Delivery Method Room Air Room Air Positive well nourished, well developed and no apparent distress General Appearance ED: well developed HEENT Reports normocephalic and head/scalp atraumatic Mouth ED: Yes moist mucous membranes normal Eyes PERRL and EOMs intact bilaterally Neck full ROM and supple Chest Wall inspection of chest normal Resp normal respiratory effort and clear to auscultation bilaterally Cardio regular rate and regular rhythm GI soft to palpation, non-tender, non-distended and no masses Back/Spine normal ROM and normal to inspection Extremity normal to inspection and full ROM Neuro oriented x3, CN's II-XII intact bilaterally, moves all extremities, no focal motor deficits and no sensory deficits noted Sensorium / Orientation: awake and alert Psych mental status grossly normal and thought process normal Skin no rashes or lesions noted and no wounds Physical Exam Const Vital Signs: 12/12/23 10:49 12/12/23 11:30 12/12/23 11:49 Temperature 97.6 F L Temperature Source Temporal Pulse Rate 76 67 Respiratory Rate 18 18 Blood Pressure 123/85 H 119/87 H Blood Pressure Mean 97 97 Pulse Ox 98 97 Oxygen Delivery Method Room Air Room Air Room Air 12/12/23 12:00 12/12/23 13:00 12/12/23 14:03 Temperature 97 F L Temperature Source Pulse Rate 86 65 74 Respiratory Rate 18 18 16 Blood Pressure 128/57 H 109/72 112/81 H Blo (more content not included)... Normal [facility] Erythrocyte distribution wid th ratioOrdered By: ED PROVIDER on 12-12-2023 Erythrocyte distribution width (RBC) [Ratio] 14.4 % 11.6-14.6 [facility] Erythrocyte distribution wid th standard deviationOrdered By: ED PROVIDER on 12-12-2023 Erythrocyte distribution width (RBC) [Entitic vol] 43.4 fL 35.1-43.9 [facility] Hematocrit Auto (Bld) [Volum e fraction]Ordered By: ED PROVIDER on 12-12-2023 Hematocrit (Bld) [Volume fraction] 39.7 % 37-47 [facility] Immature granulocytes/100 WB C Auto (Bld)Ordered By: ED PROVIDER on 12-12-2023 Immature granulocytes/100 WBC (Bld) 0.300 % 0.0-0.9 [facility] Comment on above: IG% - Immature Granu locytes (promyelocytes, myelocytes and metamyelocytes) > 1% indicates that a LEFT SHIFT is Present. L501.4020on 12-12-2023 TROPONIN-I HS 8 pg/mL Normal 3.0-54.0 [facility] Comment on above: Result Comment: Plea se Note: New Test Units and Gender Specific Reference Ranges. For more information see Policy Stat Procedure [place] High Sensitivity Troponin (TNIH) and attachments. Performed By: #### L 501.4020 ####[facility] [address] [facility]. [place], [place], [address] L501.5425on 12-12-2023 TROPONIN-I HS 9 pg/mL Normal 3.0-54.0 [facility] Comment on above: Order Comment: 1Y Result Comment: Plea se Note: New Test Units and Gender Specific Reference Ranges. For more information see Policy Stat Procedure [place] High Sensitivity Troponin (TNIH) and attachments. Performed By: #### L 500.2500, L501.5425, L100.0100 ####[facility] [address] [place], [address] Laboratory - Chemistry and C hemistry - challengeOrdered By: Miki Verduzco on 12-12-2023 CO2 [Moles/Vol] 26.0 mmol/L 21.0-32.0 [facility] Urea nitrogen/Creatinine [Mass ratio] 24.2 mg/mg 10-20 [facility] Laboratory - Hematology and Cell countsOrdered By: ED PROVIDER on 12-12-2023 MCH (RBC) [Entitic mass] 26.1 pg 27.0-32.0 [facility] MCHC (RBC) [Mass/Vol] 31.5 g/dL 32-36 [facility] Nucleated RBC/100 WBC (Bld) [Ratio] 0 % 0-5 [facility] Platelet mean volume (Bld) [Entitic vol] 8.9 fL 6.2-12.0 [facility] Platelets (Bld) [#/Vol] 305 10*3/uL 150-450 [facility] No Panel InformationOrdered By: Miki Verduzco on 12-12-2023 Troponin I High Sensitivity 8 pg/mL 3.0-54.0 [facility] Comment on above: Please Note: New [place] t Units and Gender Specific Reference Ranges. For more information see Policy Stat Procedure [place] High Sensitivity Troponin (TNIH) and attachments. Estimated Creatinine Clearance Calc 102.31 ml/min [facility] Estimated GFR (MDRD) Amer 95 mL/min >60 [facility] Comment on above: GFR Calc Estimated GFR (MDRD) Non-Af Amer 78 mL/min >60 [facility] Comment on above: Non- GFR Calc RBC Auto (Bld) [#/Vol]Ordere d By: ED PROVIDER on 12-12-2023 RBC (Bld) [#/Vol] 4.79 10*6/uL 4.2-5.4 [facility] Serum or plasma calcium jennyfer urement (mass/volume)Ordered By: Miki Verduzco on 12-12-2023 Calcium [Mass/Vol] 9.1 mg/dL 8.5-10.[address] [facility] Serum or plasma creatinine m easurement (mass/volume)Ordered By: Miki Verduzco on 12-12-2023 Creatinine [Mass/Vol] 0.83 mg/dL 0.55-1.02 [facility] Comment on above: The validity of the calculated GFR & GFRAA in patients over 70 years has not been determined. Clinical correlation is essential. Serum or plasma urea nitroge n measurement (mass/volume)Ordered By: Miki Verduzco on 12-12-2023 Urea nitrogen [Mass/Vol] 20 mg/dL 18 [facility] Thin prep Papanicolaou smear with manual screeningOrdered By: Miki Verduzco on 12-12-2023 Thin prep Papanicolaou smear with manual screening 8 12-14 [facility] SCRN MAMM (CAD)W/WILLIAMS BILATo n 12-10-2023 SCRN MAMM (CAD)W/WILLIAMS BILAT [facility] [address] [place], [place] [address] SCRN MAMM (CAD)W/WILLIAMS BILAT MR#: [id number] Acct: [id number] Name: JACQUELINE ESQUIVEL Rep #: [id number] : 1975 F 48 From: Arash colón MD PCP: Dr. Juliann Lowery DO Status: [facility] Study: SCRN MAMM (CAD)W/WILLIAMS BILAT Date of Exam: 11/30 Exam# [id number] Ordering Dr: Juliann Lowery DO [id number] MAMMOGRAPHY - BILATERAL SCREENING REASON FOR EXAM: Female, 48 years old. Routine annual screening examination. PERTINENT HISTORY: Non-contributory. TECHNIQUE: Digital bilateral breast williams (3D mammographic acquisition) in the CC and MLO projections. 2-D mediolateral oblique (MLO) and craniocaudad (CC) views of both breasts were obtained. CAD: Full Field Digital Mammography with Computer Added Detection was performed. COMPARISON: Comparison is made with prior study dated July 17, 2022 and June 12, 2020. FINDINGS: Breast Composition: There are scattered areas of fibroglandular density. There are no dominant masses or suspicious calcifications. Stable small benign-appearing bilateral axillary lymph nodes. No other significant abnormalities are identified. There has been no significant change since the prior study. BI/SCRN MAMM (CAD)W/WILLIAMS BILAT IMPRESSION: Stable bilateral screening mammogram. Yearly follow-up mammogram recommended. (A) ASSESSMENT CATEGORY: BIRADS Category 2: Benign. A letter regarding these results will be sent to the patient by the facility within 30 days. Approximately 10% of breast cancers are not detected by mammography. A normal mammogram should not delay biopsy of a clinically suspicious abnormality. [id number] Electronically Signed: Arash Castaneda MD at 8:44 EDT Reading Location ID and State: [facility] / MD , Service support , CC: Dr. Juliann Lowery DO Superintendent [employer]: Signed Normal [facility] Chiropractic Reporton 2023 Chiropractic Report [facility] [address] [place] [address] OFFICE VISIT Date of Service: 12/09/23 MR#: [id number] Acct: [id number] Name: JACQUELINE ESQUIVEL Rep #: [id number] : 1975 Provider: ROSALES Stockton Age/Sex: 48/F [place] [facility] Status: Signed Intake Vital Signs 08/26/23 17:10 Height 5 ft 6 in Intake Visit Reasons: Back pain Chief Complaint: right shoulder pain Is patient in pain?: Yes (Mid back) Pain scale (1-10): 2 Allergies Penicillins Allergy (Verified 12/09/23 16:23) Rash Medications ropinirole 1 mg tablet 1 mg PO QHS 09/24/17 [History Confirmed 12/12/23] albuterol sulfate 90 mcg/actuation aerosol inhaler (Ventolin HFA) 2 puff inhalation Q4H PRN shortness of breath or wheezing #1 device 06/13/18 [Rx Confirmed 12/12/23] omeprazole 40 mg capsule,delayed release 40 mg PO DAILY 04/28/19 [History Confirmed 12/12/23] metformin 1,000 mg tablet 1,000 mg PO DAILY 10/20/23 [History Confirmed 12/12/23] PFSH Medical History Acid reflux of child Heart murmur Pre-diabetes Surgical History History of eyelid surgery Hx of dilation and curettage Hx of tonsillectomy Family History Father Hypertension High cholesterol Mother Graves disease Hypertension High cholesterol Social History Smoking Status: Never smoker second hand exposure: No alcohol intake: never substance use type: does not use caffeine: Yes what type of physical activity do you participate in: walking, running, bicycling and weight training frequency: 3-4 times per week HPI Back pain Chief Complaint: right low back and right shoulder pain Visit Number: 5 Details: Jacqueline is a 48 y/o female here to follow up on low back pain. Pt. reports improvement in her pain since her last adjustment. She complains of mid back pain and stiffness at times. She complains of midback stiffness and pain. She states her right shoulder is back to normal. Also her low back pain has improved, she denies low back pain today. She has been treating pain at home with Aleve and stretching. She rates her pain 2/10 today. She is currently training for a marathon in November and would like to address the pain and tightness. She states the pain is aggravated with leaning over and laying flat on her back. She denies injury, numbness, tingling or radiculopathy. Location: right low back/upper back Duration: intermittent Aggravating or associated factors: bending, leaning,running Relieving factors: chiro Pain Quality: aching and dull Exam Musc General: Yes normal posture, normal gait and joint tenderness; No muscle weakness or decreased range of motion Thoracic/Lumber: Yes thoracic and lumbar spine normal to inspection, Yes paraspinal tenderness (slightly improved) on the right greater than left (upper thoracic, lumbopelvic), Yes thoraco-lumbar spasm on the right greater than left (glute, piriformis,trap) and on the left greater than right (paraspinal L2-L5) and Yes misalignment T3, T4, T5, L3, L4, L5 and RIL Sacroiliac joints: on the right Ortho Test CERVICAL THORACIC LUMBAR Kemps: Negative Valsalvas: Negative SLR: Negative Iliac Compression: Positive and Right Office Procedures Procedures - Chiropractic Procedures Manipulation: Lumbar L4, Thoracic T3 and T8 and Pelvis RIL Manipulation: 3-4 regions Electronic Stimulation: Yes Electrical Stimulation: Thoracic 15 mins (17) mA Therapy Performed by:: Queenie Wellington, Mechanical: Yes Hot and/or cold packs: Yes Patient Response: positive Assessment and Plan Assessment and Plan (1) Back pain: Status: Acute Qualifiers: Back pain laterality: right Back pain location: low back pain Chronicity: acute Sciatica presence: without sciatica Qualified Code(s): M54.50 - Low back pain, unspecified (2) Segmental and somatic dysfunction of pelvic region: Status: Acute (3) Segmental and somatic dysfunction of lumbar region: Status: Acute (4) Segmental and somatic dysfunction of thoracic region: Status: Acute Orders: Orders Chiropractic Treatments 12/09/23 M54.9 - Dorsalgia, unspecified, M99.02 - Segmental and somatic dysfunction of thoracic region, M99.03 - Segmental and somatic dysfunction of lumbar region, M99.05 - Segmental and somatic dysfunction of pelvic region Plan Patient was treated without incident. She has shown improvement. Continue care. Plan Details Goals Barriers: Goals Decrease pain Improve ROM Improve endurance Decrease inflammation Barriers Long distance running Lumbar levoscoliosis Facet arthosis Fol (more content not included)... Normal [facility] PAP IG w/Reflex HPV GDLNon 0 11-23-2023 ADEQ Comment Normal . [facility] Comment on above: Order Comment: Speci men Comment: [id number] Comment: Source.............Cervix;EndocervixSpecimen Comment: Dates / Results....LMP pecimen Comment: No. of containers..01 ThinPrep Vial Result Comment: Sati sfactory for evaluation. Endocervical and/or squamous metaplastic cells (endocervical component) are present. Performed By: #### L 7400.0290 ####[facility] [address] [place], [place], [address] Age Gdln ACOG T 30-65 Normal . [facility] Comment on above: Order Comment: Speci men Comment: [id number] Comment: Source.............Cervix;EndocervixSpecimen Comment: Dates / Results....LMP pecimen Comment: No. of containers..01 ThinPrep Vial Performed By: #### L 7400.0290 ####[facility] [address] [place], [place], [address] COMM . Normal . [facility] Comment on above: Order Comment: Speci men Comment: [id number] Comment: Source.............Cervix;EndocervixSpecimen Comment: Dates / Results....LMP pecimen Comment: No. of containers..01 ThinPrep Vial Performed By: #### L 7400.0290 ####[facility] [address] [place], [place], [id number] COMMENT Comment Normal . [facility] Comment on above: Order Comment: Speci men Comment: [id number] Comment: Source.............Cervix;EndocervixSpecimen Comment: Dates / Results....LMP pecimen Comment: No. of containers..01 ThinPrep Vial Result Comment: This liquid based ThinPrep(R) pap test was screened with the use of an image guided system. Performed By: #### L 7400.0290 ####[facility] [address] [place], [place], [id number] DIAG Comment Normal . [facility] Comment on above: Order Comment: Speci men Comment: [id number] Comment: Source.............Cervix;EndocervixSpecimen Comment: Dates / Results....LMP pecimen Comment: No. of containers..01 ThinPrep Vial Result Comment: NEGA TIVE FOR INTRAEPITHELIAL LESION OR MALIGNANCY. Performed By: #### L 7400.0290 ####[facility] [address] [place], [address] HPV APTIMA, HR Negative Normal Negative [facility] Comment on above: Order Comment: Speci men Comment: [id number] Comment: Source.............Cervix;EndocervixSpecimen Comment: Dates / Results....LMP pecimen Comment: No. of containers..01 ThinPrep Vial Result Comment: This nucleic acid amplification test detects fourteen high- risk HPV types (16,18,31,33,35,39,45,51,52,56,58,59,66,68) without differentiation. Performed By: #### L 7400.0290 ####[facility] [address] [place], [place], [id number] HPV Nohemy Rfx Comment Normal . [facility] Comment on above: Order Comment: Speci men Comment: [id number] Comment: Source.............Cervix;EndocervixSpecimen Comment: Dates / Results....LMP pecimen Comment: No. of containers..01 ThinPrep Vial Result Comment: Crit eria not met, HPV Genotype not performed. Performed at: =G - [facility] [address] [id number] [employer] Supervisor: Lori Ayala MD, Phone: [phone] Performed at: - [facility] [address] [id number] [employer] Supervisor: Lori Ayala MD, Phone: [phone] Performed By: #### L 7400.0290 ####[facility] [address] [place], [place], [id number] PAPSMR Comment Normal . [facility] Comment on above: Order Comment: Speci men Comment: [id number] Comment: Source.............Cervix;EndocervixSpecimen Comment: Dates / Results....LMP pecimen Comment: No. of containers..01 ThinPrep Vial Result Comment: The Pap smear is a screening test designed to aid in the detection of premalignant and malignant conditions of the uterine cervix. It is not a diagnostic procedure and should not be used as the sole means of detecting cervical cancer. Both false-positive and false-negative reports do occur. Performed By: #### L 7400.0290 ####[facility] [address] [place], [place], [id number] PERFORM Comment Normal . [facility] Comment on above: Order Comment: Speci men Comment: [id number] Comment: Source.............Cervix;EndocervixSpecimen Comment: Dates / Results....LMP pecimen Comment: No. of containers..01 ThinPrep Vial Result Comment: Barry Friedman Anaesthetic Technician (ASCP) Performed By: #### L 7400.0290 ####[facility] [address] [place], [place], [id number] Cervical or vaginal specimen microscopic examination by liquid based cytology (reportOrdered By: Juliann Lowery on 11-17-2023 Cytology report Cyto stain.thin prep Doc (Cvx/Vag) Comment . [facility] Comment on above: Criteria not met, HP V Genotype not performed.Performed at: =G - [facility] [address] [id number] Director: Lori Ayala MD, Phone: [phone] at: - [facility] [id number] Director: Lori Ayala MD, Phone: [phone] Cervical or vagninal specime n microscopic examination by cytology stain (reported asOrdered By: Juliann Lowery on 11-17-2023 Cytology report Cyto stain Doc (Cvx/Vag) Comment . [facility] Comment on above: The Pap smear is a s creening test designed to aid in thedetection of premalignant and malignant conditions of theuterine cervix. It is not a diagnostic procedure andshould not be used as the sole means of detecting cervicalcancer. Both false-positive and false-negative reports dooccur. Laboratory - CytologyOrdered By: Juliann Lowery on 11-17-2023 Machine Printer Cyto stain Nom (Cvx/Vag) [ID] Comment . [facility] Comment on above: Kyler Friedman, Cyto technologist (ASCP) Laboratory - Miscellaneous t estsOrdered By: Juliann Lowery on 11-17-2023 Service comment (Unsp spec) [Interp] . . [facility] No Panel InformationOrdered By: Juliann Lowery on 11-17-2023 Pap Smear Additional Comments 30-65 . [facility] Thin prep Papanicolaou smear with manual screeningOrdered By: Juliann Lowery on 11-17-2023 Thin prep Papanicolaou smear with manual screening Comment . [facility] Comment on above: NEGATIVE FOR INTRAEP ITHELIAL LESION OR MALIGNANCY. This liquid based Th inPrep(R) pap test was screened withthe use of an image guided system. Chiropractic Reporton 2023 Chiropractic Report [facility] [address] [place] [address] OFFICE VISIT Date of Service: 11/09/23 MR#: [id number] Acct: [id number] Name: JACQUELINE ESQUIVEL Rep #: [id number] : 1975 Provider: ROSALES Stockton Age/Sex: 48/F [place] [facility] Status: Signed Intake Vital Signs 08/26/23 17:10 Height 5 ft 6 in Intake Visit Reasons: Back pain Chief Complaint: right shoulder pain Allergies Penicillins Allergy (Verified 11/09/23 16:17) Rash Medications ropinirole 1 mg tablet 1 mg PO QHS 09/24/17 [History Confirmed 11/09/23] albuterol sulfate 90 mcg/actuation aerosol inhaler (Ventolin HFA) 2 puff inhalation Q4H PRN shortness of breath or wheezing #1 device 06/13/18 [Rx Confirmed 11/09/23] omeprazole 40 mg capsule,delayed release 40 mg PO DAILY 04/28/19 [History Confirmed 11/09/23] celecoxib 100 mg capsule (Celebrex) 100 mg PO BID #40 caps 10/20/23 [Rx Confirmed 11/09/23] metformin 1,000 mg tablet 1,000 mg PO DAILY 10/20/23 [History Confirmed 11/09/23] PFSH Medical History Acid reflux of child Heart murmur Pre-diabetes Surgical History History of eyelid surgery Hx of dilation and curettage Hx of tonsillectomy Family History Father Hypertension High cholesterol Mother Graves disease Hypertension High cholesterol Social History Smoking Status: Never smoker second hand exposure: No alcohol intake: never substance use type: does not use caffeine: Yes what type of physical activity do you participate in: walking, running, bicycling and weight training frequency: 3-4 times per week HPI Back pain Chief Complaint: right low back and right shoulder pain Visit Number: 4 Details: Jacqueline is a 48 y/o female here to follow up on low back pain. Pt. advises her low back and shoulder pain has improved since her last adjustment. She states her right chest/rib also improved since her last adjustment. She complains of mid back pain and stiffness at times. She states she hold her stress in her midback which exacerbates her pain. She has been treating pain at home with Aleve and stretching. She rates her pain 2/10 today. She is currently training for a marathon in November and would like to address the pain and tightness. She states the pain is aggravated with leaning over and laying flat on her back. She denies injury, numbness, tingling or radiculopathy. Location: right low back/upper back Duration: intermittent Aggravating or associated factors: bending, leaning Relieving factors: chiro Pain Quality: aching and dull Exam Musc General: Yes normal posture, normal gait and joint tenderness; No muscle weakness or decreased range of motion Thoracic/Lumber: Yes thoracic and lumbar spine normal to inspection, Yes paraspinal tenderness (slightly improved) on the right greater than left (upper thoracic, lumbopelvic), Yes thoraco-lumbar spasm on the right greater than left (glute, piriformis,trap) and on the left greater than right (paraspinal L2-L5) and Yes misalignment T3, T4, T5, L3, L4, L5 and RIL Sacroiliac joints: on the right Ortho Test CERVICAL THORACIC LUMBAR Kemps: Negative Valsalvas: Negative SLR: Negative Iliac Compression: Positive and Right Office Procedures Procedures - Chiropractic Procedures Manipulation: Lumbar L4, Thoracic T3 and T8 and Pelvis RIL Manipulation: 3-4 regions Electronic Stimulation: Yes Electrical Stimulation: Thoracic 15 mins (12) mA Therapy Performed by:: Queenie Wellington, Mechanical: Yes Hot and/or cold packs: Yes Patient Response: positive Assessment and Plan Assessment and Plan (1) Back pain: Status: Acute Qualifiers: Back pain laterality: right Back pain location: low back pain Chronicity: acute Sciatica presence: without sciatica Qualified Code(s): M54.50 - Low back pain, unspecified (2) Segmental and somatic dysfunction of pelvic region: Status: Acute (3) Segmental and somatic dysfunction of lumbar region: Status: Acute (4) Segmental and somatic dysfunction of thoracic region: Status: Acute Orders: Orders Chiropractic Treatments 11/09/23 M54.9 - Dorsalgia, unspecified, M99.02 - Segmental and somatic dysfunction of thoracic region, M99.03 - Segmental and somatic dysfunction of lumbar region, M99.05 - Segmental and somatic dysfunction of pelvic region Plan Patient had visit with Dr. Colon regarding shoulder pain, he rx anti-inflammatory and it was effective. Xrays revealed L levoscoliosis apex T12 which could be attributing to persistent mid back pain. She has degenerative changes in the lumbar facets as well. Reviewed images with pat (more content not included)... Normal [facility] Orthopedic Visit Reporton Orthopedic Visit Report [facility] [address] [place] [address] [address] [place] [address] OFFICE VISIT Date of Service: 10/20/23 MR#: [id number] Acct: [id number] Name: JACQUELINE ESQUIVEL Rep #: [id number] : 1975 Provider: Dr. Eduar Mosley so, DO Age/Sex: 48/F [place] [facility] Status: Signed Intake Vital Signs 08/26/23 17:10 Height 5 ft 6 in Intake Visit Reasons: RIGHT SHOULDER Chief Complaint: right shoulder pain Is patient in pain?: Yes (right shoulder) Pain scale (1-10): 4 Allergies Penicillins Allergy (Verified 10/20/23 16:02) Rash Medications ropinirole 1 mg tablet 1 mg PO QHS 09/24/17 [History Confirmed 10/20/23] albuterol sulfate 90 mcg/actuation aerosol inhaler (Ventolin HFA) 2 puff inhalation Q4H PRN shortness of breath or wheezing #1 device 06/13/18 [Rx Confirmed 10/20/23] omeprazole 40 mg capsule,delayed release 40 mg PO DAILY 04/28/19 [History Confirmed 10/20/23] celecoxib 100 mg capsule (Celebrex) 100 mg PO BID #40 caps 10/20/23 [Rx Confirmed 10/20/23] metformin 1,000 mg tablet 1,000 mg PO DAILY 10/20/23 [History Confirmed 10/20/23] PFSH Medical History Acid reflux of child Heart murmur Pre-diabetes Surgical History History of eyelid surgery Hx of dilation and curettage Hx of tonsillectomy Family History Father Hypertension High cholesterol Mother Graves disease Hypertension High cholesterol Social History Smoking Status: Never smoker second hand exposure: No alcohol intake: never substance use type: does not use caffeine: Yes what type of physical activity do you participate in: walking, running, bicycling and weight training frequency: 3-4 times per week HPI RIGHT SHOULDER Chief Complaint: right shoulder pain Details: This documentation accurately reflects the service provided and the decisions made by me, Dr. Eduar Robert, DO 10/20/23 1212. Part of today???s visit was documented by [ ], acting as scribe. JACQUELINE ESQUIVEL is a 48 year old F New pt. seen over 3 years ago,here today for right shoulder pain directly over her AC joint. Pt. was seen in 2020 advises her right shoulder pain flared up in mid August after going hunting with her . She has been treating it with TENS and heat and it had improved until this past Wednesday night when she was lying in bed and rolled over onto her right shoulder and she heard a bunch of cracking noises, the next morning it was mildly sore so she went on a 13 mile run as she is training for a marathon. By Wednesday morning she was unable to pick her right arm up to do her hair. She states she began using the heat, TENs, and alternating Ibuprofen and Tylenol as needed and was feeling pretty good until today as she was positioning her arm for Xrays she had pain on the top of her right shoulder. She states the pain radiates into the right side of her neck and right wrist at times. She has also been seeing Dr. Larson for assisted living care manager. Ortho Exam General General: Yes no acute distress Neurologic: Yes alert and Yes oriented x3 Psychologic: Yes reasonable and appropriate Right Shoulder Skin/Wound: Yes CDI, No ecchymosis, No erythema and No swelling Testing: Positive TTP AC Joint and cross arm; Negative Hawkin's, Neer's, Speed's, TTP Biceps, Drop Arm or translation Coding Level of Care Code Off vis,new,level 3 Diagnoses Sprain of right acromioclavicular joint, initial encounter S43.51XA Encounter type: initial encounter Assessment and Plan Assessment and Plan (1) Sprain of right acromioclavicular joint: Status: Acute Qualifiers: Encounter type: initial encounter Qualified Code(s): S43.51XA - Sprain of right acromioclavicular joint, initial encounter Medications: New celecoxib (Celebrex) 100 mg PO BID 40 caps 0RF Plan Explained the x-rays to the patient and they don't show any fracture or dislocation , 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 She does have an AC joint sprain as she has worse symptoms directly at the AC joint. she did have some radiating pain from the neck and arm but these are not constant and not her most significant concern Recommend an anti-inflammatory for 2 weeks and no strenuous shoulder exercises. Running is still alright though. After 2 weeks if she is still having pain and the shoulder is bothering her she can try a steroid injection. Recommend icing as well. She should stay away from weight training or heavy lifting for the next 2 weeks. Will send her over Celebrex. Follow up in an as needed basis or sooner if pain, swelling, numbness or associated symptoms, or concerns develop. All questions answered. (more content not included)... Normal [facility] Absolute lymphocyte countOrd ered By: Juliann Lowery on 10-15-2023 Lymphocytes Auto (Unsp spec) [#/Vol] 2.31 10*3/uL 0.83-4.51 [facility] Automated lymphocyte count a s percentage of total leukocytesOrdered By: Juliann Lowery on 10-15-2023 Lymphocytes/100 WBC Auto (Unsp spec) 34.9 % 19-41 [facility] Basophil percentageOrdered B y: Juliann Lowery on 10-15-2023 Basophils/100 WBC (Bld) 0.8 % 0-1 [facility] Bilirubin [Mass/Vol] 0.80 mg/dL 0.20-1.00 [facility] Comment on above: For patients on eltr ombopag therapy, use of Dimension [place] TBIL is not recommended. Chloride [Moles/Vol] 109 mmol/L 98-107 [facility] Cholesterol [Mass/Vol] 206 mg/dL <200 [facility] Comment on above: <200 mg/dL Desirable 200-240 mg/dL Borderline >240 mg/dL High Risk Eosinophils/100 WBC (Bld) 1.4 % 0-5 [facility] Glucose [Mass/Vol] 100 mg/dL 74-[address] [facility] Comment on above: Fasting Glucose resu lt from 100 to 125 mg/dL suggests IMPAIRED HOMEOSTASIS per A.D.A. criteria. Hemoglobin (Bld) [Mass/Vol] 11.9 g/dL 12.0-15.0 [facility] Monocytes/100 WBC (Bld) 7.0 % 0-10 [facility] Neutrophils (Bld) [#/Vol] 3.7 10*3/uL 2.0-7.7 [facility] Neutrophils/100 WBC (Bld) 55.6 % 47-70 [facility] Potassium [Moles/Vol] 4.1 mmol/L 3.5-5.1 [facility] Protein [Mass/Vol] 7.0 g/dL 6.4-8.[address] [facility] Sodium [Moles/Vol] 139 mmol/L 136-[address] [facility] Triglyceride [Mass/Vol] 80 mg/dL <199 [facility] Comment on above: The drugs N-Acetylcy steine and Metamizole may falsely depress this assay.Serum Triglycerides Reference Interval Normal <150 mg/dL Borderline high 150 - 199 mg/dL High 200 - 499 mg/dL Very High > or = 500 mg/dL WBC (Bld) [#/Vol] 6.6 10*3/uL 4.4-11.[address] [facility] CBC W/Diff, Automatedon 09-30 Absolute Lymph 2.31 X10 3/uL Normal 0.83-4.51 [facility] Comment on above: Performed By: #### L [id number], L501.9985, L100.0100, L500.4050, L500.4100 #### [facility] [address] [place], [place], [address] Absolute Neut 3.7 X10 3/uL Normal 2.0-7.7 [facility] Comment on above: Performed By: #### L [id number], L501.9985, L100.0100, L500.4050, L500.4100 #### [facility] [address] [place], [address] Basophils/100 WBC (Bld) 0.8 % Normal 0-1 [facility] Comment on above: Performed By: #### L [id number], L501.9985, L100.0100, L500.4050, L500.4100 #### [facility] [address] [place], [address] Eosinophils/100 WBC (Bld) 1.4 % Normal 0-5 [facility] Comment on above: Performed By: #### L [id number], L501.9985, L100.0100, L500.4050, L500.4100 #### [facility] [address] [place], [address] Erythrocyte distribution width (RBC) [Ratio] 14.2 % Normal 11.6-14.6 [facility] Comment on above: Performed By: #### L [id number], L501.9985, L100.0100, L500.4050, L500.4100 #### [facility] [address] [place], [address] Hematocrit (Bld) [Volume fraction] 38.6 % Normal 37-47 [facility] Comment on above: Performed By: #### L [id number], L501.9985, L100.0100, L500.4050, L500.4100 #### [facility] [address] [place], [address] Hemoglobin (Bld) [Mass/Vol] 11.9 g/dL Low 12.0-15.0 [facility] Comment on above: Performed By: #### L [id number], L501.9985, L100.0100, L500.4050, L500.4100 #### [facility] [address] [place], [address] IG% 0.300 Normal 0.0-0.9 [facility] Comment on above: Result Comment: IG% - Immature Granulocytes (promyelocytes, myelocytes and metamyelocytes) > 1% indicates that a LEFT SHIFT is Present. Performed By: #### L 501.9520, L501.9985, L100.0100, L500.4050, L500.4100 #### [facility] [address] [place], [address] Lymphocytes/100 WBC (Bld) 34.9 % Normal 19-41 [facility] Comment on above: Performed By: #### L 501.9520, [id number], L100.0100, L500.4050, L500.4100 #### [facility] [address] [place], [address] MCH (RBC) [Entitic mass] 25.4 pg Low 27.0-32.0 [facility] Comment on above: Performed By: #### L 501.9520, L501.9985, L100.0100, L500.4050, L500.4100 #### [facility] [address] [place], [address] MCHC (RBC) [Mass/Vol] 30.8 g/dL Low 32-36 [facility] Comment on above: Performed By: #### L [id number], [id number], L100.0100, L500.4050, L500.4100 #### [facility] [address] [place], [address] MCV (RBC) [Entitic vol] 82.5 fL Normal 81-99 [facility] Comment on above: Performed By: #### L 501.9520, [id number], L100.0100, L500.4050, L500.4100 #### [facility] [address] [place], [address] Monocytes/100 WBC (Bld) 7.0 % Normal 0-10 [facility] Comment on above: Performed By: #### L 501.9520, [id number], L100.0100, L500.4050, L500.4100 #### [facility] [address] [place], [address] Neutrophils/100 WBC (Bld) 55.6 % Normal 47-70 [facility] Comment on above: Performed By: #### L 501.9520, L501.9985, L100.0100, L500.4050, L500.4100 #### [facility] [address] [place], [address] Nucleated RBC (Bld) [#/Vol] 0 10*3/uL Normal 0-5 [facility] Comment on above: Performed By: #### L 501.9520, [id number], L100.0100, L500.4050, L500.4100 #### [facility] [address] [place], [address] Platelet mean volume (Bld) [Entitic vol] 9.2 fL Normal 6.2-12.0 [facility] Comment on above: Performed By: #### L 501.9520, L501.9985, L100.0100, L500.4050, L500.4100 #### [facility] [address] [place], [address] Platelets (Bld) [#/Vol] 302 10*3/uL Normal 150-450 [facility] Comment on above: Performed By: #### L 501.9520, L501.9985, L100.0100, L500.4050, L500.4100 #### [facility] [address] [place], [address] RBC (Bld) [#/Vol] 4.68 10*6/uL Normal 4.2-5.4 [facility] Comment on above: Performed By: #### L 501.9520, L501.9985, L100.0100, L500.4050, L500.4100 #### [facility] [address] [place], [address] RDW SD 42.5 fl Normal 35.1-43.9 [facility] Comment on above: Performed By: #### L 501.9520, L501.9985, L100.0100, L500.4050, L500.4100 #### [facility] [address] [place], [address] WBC (Bld) [#/Vol] 6.6 10*3/uL Normal 4.4-11.[address] [facility] Comment on above: Performed By: #### L 501.9520, L501.9985, L100.0100, L500.4050, L500.4100 #### [facility] [address] [place], [address] [facility] 10-15-2023 Albumin [Mass/Vol] 3.6 g/dL Normal 3.2-5.[address] [facility] Comment on above: Performed By: #### L 501.9520, L501.9985, L100.0100, L500.4050, L500.4100 #### [facility] [address] [place], [address] Albumin/Globulin [Mass ratio] 1.1 {ratio} Normal 0.9-2.4 [facility] Comment on above: Performed By: #### L 501.9520, L501.9985, L100.0100, L500.4050, L500.4100 #### [facility] [address] [place], [address] ALK P 72 U/L Normal 45-117 [facility] Comment on above: Performed By: #### L 501.9520, L501.9985, L100.0100, L500.4050, L500.4100 #### [facility] [address] [place], [address] ALT [Catalytic activity/Vol] 22 U/L Normal 13-56 [facility] Comment on above: Performed By: #### L 501.9520, L501.9985, L100.0100, L500.4050, L500.4100 #### [facility] [address] [place], [address] AST [Catalytic activity/Vol] 21 U/L Normal 15-37 [facility] Comment on above: Performed By: #### L 501.9520, L501.9985, L100.0100, L500.4050, L500.4100 #### [facility] [address] [place], [address] Bilirubin [Mass/Vol] 0.80 mg/dL Normal 0.20-1.00 [facility] Comment on above: Result Comment: For patients on eltrombopag therapy, use of Dimension [place] TBIL is not recommended. Performed By: #### L 501.9520, L501.9985, L100.0100, L500.4050, L500.4100 #### [facility] [address] [place], [address] BUN/CRE 25.6 RATIO High 10-20 [facility] Comment on above: Performed By: #### L 501.9520, L501.9985, L100.0100, L500.4050, L500.4100 #### [facility] [address] [place], [address] CA,Total 9.0 mg/dL Normal 8.5-10.1 [facility] Comment on above: Performed By: #### L 501.9520, L501.9985, L100.0100, L500.4050, L500.4100 #### [facility] [address] [place], [address] Chloride [Moles/Vol] 109 mmol/L High 98-107 [facility] Comment on above: Performed By: #### L 501.9520, L501.9985, L100.0100, L500.4050, L500.4100 #### [facility] [address] [place], [address] CO2 [Moles/Vol] 28.0 mmol/L Normal 21.0-32.0 [facility] Comment on above: Performed By: #### L 501.9520, L501.9985, L100.0100, L500.4050, L500.4100 #### [facility] [address] [place], [address] Creatinine [Mass/Vol] 0.82 mg/dL Normal 0.55-1.02 [facility] Comment on above: Result Comment: The validity of the calculated GFR GFRAA in patients over 70 years has not been determined. Clinical correlation is essential. Performed By: #### L 501.9520, L501.9985, L100.0100, L500.4050, L500.4100 #### [facility] [address] [place], [address] EST GFR - AA 96 mL/min Normal >60 [facility] Comment on above: Result Comment: Afri can [place] GFR Calc Performed By: #### L 501.9520, L501.9985, L100.0100, L500.4050, L500.4100 #### [facility] [address] [place], [address] GAP 2 Low 5-15 [facility] Comment on above: Performed By: #### L 501.9520, L501.9985, L100.0100, L500.4050, L500.4100 #### [facility] [address] [place], [address] GFR/1.73 sq M.predicted among non-blacks MDRD (S/P/Bld) [Vol rate/Area] 79 mL/min/{1.73_m2} Normal >60 [facility] Comment on above: Result Comment: Non- GFR Calc Performed By: #### L 501.9520, L501.9985, L100.0100, L500.4050, L500.4100 #### [facility] [address] [place], [address] Globulin (S) [Mass/Vol] 3.4 g/dL Normal 2.2-4.2 [facility] Comment on above: Performed By: #### L 501.9520, L501.9985, L100.0100, L500.4050, L500.4100 #### [facility] [address] [place], [address] Glucose [Mass/Vol] 100 mg/dL Normal 74-[address] [facility] Comment on above: Result Comment: Fast ing Glucose result from 100 to 125 mg/dL suggests IMPAIRED HOMEOSTASIS per A.D.A. criteria. Performed By: #### L 501.9520, L501.9985, L100.0100, L500.4050, L500.4100 #### [facility] [address] [place], [address] Potassium [Moles/Vol] 4.1 mmol/L Normal 3.5-5.1 [facility] Comment on above: Performed By: #### L 501.9520, L501.9985, L100.0100, L500.4050, L500.4100 #### [facility] [address] [place], [address] Sodium [Moles/Vol] 139 mmol/L Normal 136-[address] [facility] Comment on above: Performed By: #### L 501.9520, L501.9985, L100.0100, L500.4050, L500.4100 #### [facility] [address] [place], [address] T PROT 7.0 g/dL Normal 6.4-8.2 [facility] Comment on above: Performed By: #### L 501.9520, L501.9985, L100.0100, L500.4050, L500.4100 #### [facility] [address] [place], [address] Urea nitrogen [Mass/Vol] 21 mg/dL High 7-18 [facility] Comment on above: Performed By: #### L 501.9520, L501.9985, L100.0100, L500.4050, L500.4100 #### [facility] [address] [place], [address] Determination of erythrocyte mean corpuscular volume (MCV)Ordered By: Juliann Lowery on 10-15-2023 MCV (RBC) [Entitic vol] 82.5 fL 81-99 [facility] Erythrocyte distribution wid th ratioOrdered By: Juliann Lowery on 10-15-2023 Erythrocyte distribution width (RBC) [Ratio] 14.2 % 11.6-14.6 [facility] Erythrocyte distribution wid th standard deviationOrdered By: Juliann Lowery on 10-15-2023 Erythrocyte distribution width (RBC) [Entitic vol] 42.5 fL 35.1-43.9 [facility] Hematocrit Auto (Bld) [Volum e fraction]Ordered By: Juliann Lowery on 10-15-2023 Hematocrit (Bld) [Volume fraction] 38.6 % 37-47 [facility] Hemoglobin A1con 10-15-2023 HbA1c (Bld) [Mass fraction] 5.8 % High 3.8-5.6 [facility] Comment on above: Result Comment: Norm al < 5.7 % Prediabetic 5.7 - 6.4 % Diabetic >or= 6.5 % Please note range changes. Performed By: #### L 501.9520, L501.9985, L100.0100, L500.4050, L500.4100 #### [facility] [address] [place], [address] Immature granulocytes/100 WB C Auto (Bld)Ordered By: Juliann Lowery on 10-15-2023 Immature granulocytes/100 WBC (Bld) 0.300 % 0.0-0.9 [facility] Comment on above: IG% - Immature Granu locytes (promyelocytes, myelocytes and metamyelocytes) > 1% indicates that a LEFT SHIFT is Present. Laboratory - Chemistry and C hemistry - challengeOrdered By: Juliann Lowery on 10-15-2023 Albumin/Globulin [Mass ratio] 1.1 {ratio} 0.9-2.4 [facility] ALP [Catalytic activity/Vol] 72 U/L 45-117 [facility] ALT [Catalytic activity/Vol] 22 U/L 13-56 [facility] Cholesterol in HDL [Mass/Vol] 66 mg/dL >40 [facility] Comment on above: The drugs N-Acetylcy steine and Metamizole may falsely depress this assay. Reference Range HDL <40 mg/dL Low HDL Cholesterol HDL >or= 60 mg/dL High HDL Cholesterol Cholesterol in LDL [Mass/Vol] 124 mg/dL 0-130 [facility] CO2 [Moles/Vol] 28.0 mmol/L 21.0-32.0 [facility] Globulin (S) [Mass/Vol] 3.4 g/dL 2.2-4.2 [facility] Urea nitrogen/Creatinine [Mass ratio] 25.6 mg/mg 10-20 [facility] Laboratory - Hematology and Cell countsOrdered By: Juliann Lowery on 10-15-2023 MCH (RBC) [Entitic mass] 25.4 pg 27.0-32.0 [facility] MCHC (RBC) [Mass/Vol] 30.8 g/dL 32-36 [facility] Nucleated RBC/100 WBC (Bld) [Ratio] 0 % 0-5 [facility] Platelet mean volume (Bld) [Entitic vol] 9.2 fL 6.2-12.0 [facility] Platelets (Bld) [#/Vol] 302 10*3/uL 150-450 [facility] Lipid Profileon 10-15-2023 Cholesterol [Mass/Vol] 206 mg/dL High 200 [facility] Comment on above: Result Comment: <200 mg/dL Desirable 200-240 mg/dL Borderline >240 mg/dL High Risk Performed By: #### L 501.9520, L501.9985, L100.0100, L500.4050, L500.4100 #### [facility] [address] [place], [address] Cholesterol in HDL [Mass/Vol] 66 mg/dL Normal [facility] Comment on above: Result Comment: The drugs N-Acetylcysteine and Metamizole may falsely depress this assay. Reference Range HDL <40 mg/dL Low HDL Cholesterol HDL >or= 60 mg/dL High HDL Cholesterol Performed By: #### L 501.9520, L501.9985, L100.0100, L500.4050, L500.4100 #### [facility] [address] [place], [address] Cholesterol in LDL [Mass/Vol] 124 mg/dL Normal 0-130 [facility] Comment on above: Performed By: #### L 501.9520, L501.9985, L100.0100, L500.4050, L500.4100 #### [facility] [address] [place], [address] Cholesterol in VLDL [Mass/Vol] 16 mg/dL Normal 5-40 [facility] Comment on above: Performed By: #### L 501.9520, L501.9985, L100.0100, L500.4050, L500.4100 #### [facility] [address] [place], [address] Triglyceride [Mass/Vol] 80 mg/dL Normal [facility] Comment on above: Result Comment: The drugs N-Acetylcysteine and Metamizole may falsely depress this assay. Serum Triglycerides Reference Interval Normal <150 mg/dL Borderline high 150 - 199 mg/dL High 200 - 499 mg/dL Very High > or = 500 mg/dL Performed By: #### L 501.9520, L501.9985, L100.0100, L500.4050, L500.4100 #### [facility] [place], [address] No Panel InformationOrdered By: Juliann Lowery on 10-15-2023 Estimated GFR (MDRD) Amer 96 mL/min >60 [facility] Comment on above: GFR Calc Estimated GFR (MDRD) Non-Af Amer 79 mL/min >60 [facility] Comment on above: Non- GFR Calc VLDL Cholesterol 16 mg/dL 5-40 [facility] RBC Auto (Bld) [#/Vol]Ordere d By: Juliann Lowery on 10-15-2023 RBC (Bld) [#/Vol] 4.68 10*6/uL 4.2-5.4 [facility] Serum or plasma calcium jennyfer urement (mass/volume)Ordered By: Juliann Lowery on 10-15-2023 Calcium [Mass/Vol] 9.0 mg/dL 8.5-10.[address] [facility] Serum or plasma creatinine m easurement (mass/volume)Ordered By: Juliann Lowery on 10-15-2023 Creatinine [Mass/Vol] 0.82 mg/dL 0.55-1.02 [facility] Comment on above: The validity of the calculated GFR & GFRAA in patients over 70 years has not been determined. Clinical correlation is essential. Serum or plasma thyroid stim ulating hormone (TSH) measurement (units/volume)Ordered By: Juliann Lowery on 10-15-2023 TSH Qn 1.70 uIU/mL 0.358-3.74 [facility] Serum or plasma urea nitroge n measurement (mass/volume)Ordered By: Juliann Lowery on 10-15-2023 Urea nitrogen [Mass/Vol] 21 mg/dL 7-18 [facility] Thin prep Papanicolaou smear with manual screeningOrdered By: Juliann Lowery on 10-15-2023 Thin prep Papanicolaou smear with manual screening 3.6 g/dL 3.2-5.0 [facility] Thin prep Papanicolaou smear with manual screening 21 U/L 15 [facility] Thin prep Papanicolaou smear with manual screening 2 -15 [facility] [facility] Thyroid Stim Hormone (TSH)on 10-15-2023 TSH 1.70 uIU/mL Normal 0.358-3.74 [facility] Comment on above: Performed By: #### L 501.9520, L501.9985, L100.0100, L500.4050, L500.4100 #### [facility] Laboratory [address] [place], [address] Whole blood hemoglobin A1c/t otal hemoglobin ratio (mass fraction)Ordered By: Juliann Lowery on 10-15-2023 HbA1c (Bld) [Mass fraction] 5.8 % 3.8-5.6 [facility] Comment on above: Normal < 5.7 % Predi abetic 5.7 - 6.4 % Diabetic >or= 6.5 % Please note range changes. Chiropractic Reporton 2023 Chiropractic Report [facility] [address] [place] [address] OFFICE VISIT Date of Service: 10/11/23 MR#: [id number] Acct: [id number] Name: ALVINJACQUELINE BAILEY Rep #: [id number] : 1975 Provider: ROSALES Stockton Age/Sex: 48/F [place] [facility] [place] Status: Signed Intake Vital Signs 08/26/23 17:10 Height 5 ft 6 in Intake Visit Reasons: Back pain Chief Complaint: right low back, right shoulder/rib pain Allergies Penicillins Allergy (Verified 10/11/23 16:34) Rash Medications bupropion HCl 150 mg 24 hr tablet, extended release (Wellbutrin XL) 150 mg PO QAM 09/24/17 [History Confirmed 10/11/23] ropinirole 1 mg tablet 1 mg PO QHS 09/24/17 [History Confirmed 10/11/23] albuterol sulfate 90 mcg/actuation aerosol inhaler (Ventolin HFA) 2 puff inhalation Q4H PRN shortness of breath or wheezing #1 device 06/13/18 [Rx Confirmed 10/11/23] omeprazole 40 mg capsule,delayed release 40 mg PO DAILY 04/28/19 [History Confirmed 10/11/23] guaifenesin 1,200 mg tablet, extended release 12 hr (Mucinex) 1,200 mg PO BID 05/19/21 [History Confirmed 10/11/23] montelukast 10 mg tablet (Singulair) 10 mg PO DAILY 08/26/23 [History Confirmed 10/11/23] PFSH Medical History Acid reflux of child Heart murmur Pre-diabetes Surgical History History of eyelid surgery Hx of dilation and curettage Hx of tonsillectomy Family History Father Hypertension High cholesterol Mother Graves disease Hypertension High cholesterol Social History Smoking Status: Never smoker second hand exposure: No alcohol intake: never substance use type: does not use caffeine: Yes what type of physical activity do you participate in: walking, running, bicycling and weight training frequency: 3-4 times per week HPI Back pain Chief Complaint: right low back and right shoulder pain Visit Number: 3 Details: Jacqueline is a 48 y/o female here to follow up on low back pain. Pt. advises her low back tightness has improved after her last adjustment. She does report stiffness in her low back which is worse on the right. She states her right chest/rib was better after her last adjustment but after she lifted weights it started bothering her again and it feels as though it may be out again. She also complains of stiffness in her mid back. She has been treating pain at home with Aleve and stretching. She rates her pain 2/10 today. She is currently training for a marathon in November and would like to address the pain and tightness. She states the pain is aggravated with leaning over and laying flat on her back. She denies injury, numbness, tingling or radiculopathy. Location: right low back/upper back Duration: intermittent Aggravating or associated factors: bending, leaning Relieving factors: chiro Pain Quality: aching and dull Exam Musc General: Yes normal posture, normal gait and joint tenderness; No muscle weakness or decreased range of motion Thoracic/Lumber: Yes thoracic and lumbar spine normal to inspection, Yes paraspinal tenderness (slightly improved) on the right greater than left (upper thoracic, lumbopelvic), Yes thoraco-lumbar spasm on the right greater than left (glute, piriformis,trap) and on the left greater than right (paraspinal L2-L5) and Yes misalignment T3, T4, T5, L3, L4, L5 and RIL Sacroiliac joints: on the right Ortho Test CERVICAL THORACIC LUMBAR Kemps: Negative Valsalvas: Negative SLR: Negative Iliac Compression: Positive and Right Office Procedures Procedures - Chiropractic Procedures Manipulation: Lumbar L4, Thoracic T3 and Pelvis RIL Manipulation: 3-4 regions Electronic Stimulation: Yes Electrical Stimulation: Lumbar 15 mins (17) mA and Thoracic 15 mins (17) mA Therapy Performed by:: Queenie Wellington, Mechanical: Yes Hot and/or cold packs: Yes Patient Response: positive Assessment and Plan Assessment and Plan (1) Back pain: Status: Acute Qualifiers: Back pain laterality: right Back pain location: low back pain Chronicity: acute Sciatica presence: without sciatica Qualified Code(s): M54.50 - Low back pain, unspecified (2) Segmental and somatic dysfunction of pelvic region: Status: Acute (3) Segmental and somatic dysfunction of lumbar region: Status: Acute (4) Segmental and somatic dysfunction of thoracic region: Status: Acute Orders: Orders Chiropractic Treatments 10/11/23 M54.9 - Dorsalgia, unspecified, M99.02 - Segmental and somatic dysfunction of thoracic region, M99.03 - Segmental and somatic dysfunction of lumbar region, M99.05 - Segmental and somatic dysfunction of pelvic region Plan Patien (more content not included)... Normal [facility] Chiropractic Reporton 2023 Chiropractic Report [facility] [address] [place], [place] [id number] OFFICE VISIT Date of Service: 09/13/23 MR#: [id number] Acct: [id number] Name: JACQUELINE ESQUIVEL Rep #: [id number] : 1975 Provider: ROSALES Stockton Age/Sex: 48/F [place] [facility] [place] Status: Signed Intake Vital Signs 08/26/23 16:01 08/26/23 17:10 Height 5 ft 6 in 5 ft 6 in Weight: 229 lb BMI 36.9 BP 138/80 H Intake Visit Reasons: Back pain Chief Complaint: right low back, right shoulder/rib pain Is patient in pain?: Yes (right low back right shoulder/rib) Pain scale (1-10): 2 Allergies Penicillins Allergy (Verified 09/13/23 15:07) Rash Medications bupropion HCl 150 mg 24 hr tablet, extended release (Wellbutrin XL) 150 mg PO QAM 09/24/17 [History Confirmed 09/13/23] ropinirole 1 mg tablet 1 mg PO QHS 09/24/17 [History Confirmed 09/13/23] albuterol sulfate 90 mcg/actuation aerosol inhaler (Ventolin HFA) 2 puff inhalation Q4H PRN shortness of breath or wheezing #1 device 06/13/18 [Rx Confirmed 09/13/23] omeprazole 40 mg capsule,delayed release 40 mg PO DAILY 04/28/19 [History Confirmed 09/13/23] guaifenesin 1,200 mg tablet, extended release 12 hr (Mucinex) 1,200 mg PO BID 05/19/21 [History Confirmed 09/13/23] montelukast 10 mg tablet (Singulair) 10 mg PO DAILY 08/26/23 [History Confirmed 09/13/23] PFSH Medical History Acid reflux of child Heart murmur Pre-diabetes Surgical History History of eyelid surgery Hx of dilation and curettage Hx of tonsillectomy Family History Father Hypertension High cholesterol Mother Graves disease Hypertension High cholesterol Social History Smoking Status: Never smoker second hand exposure: No alcohol intake: never substance use type: does not use caffeine: Yes what type of physical activity do you participate in: walking, running, bicycling and weight training frequency: 3-4 times per week HPI Back pain Chief Complaint: right low back and right shoulder pain Visit Number: 2 Details: Jacqueline is a 48 y/o female 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 Pt. advises her low back tightness improved after her last adjustment. She states she has been experiencing some mild pain on the right side of her lumbar spine that returned yesterday. She states her right chest/rib has been popping, is tender and feels like she may have a rib out. She has been treating pain at home with Aleve and stretching. She rates her pain 2/10 today. She is currently training for a marathon in November and would like to address the pain and tightness now. She ran 9 miles this weekend. She states the pain is aggravated with leaning over and laying flat on her back. She denies injury, numbness, tingling or radiculopathy. Location: right low back/upper back Duration: intermittent Aggravating or associated factors: bending, leaning Relieving factors: chiro Pain Quality: aching and dull Exam Musc General: Yes normal posture, normal gait and joint tenderness; No muscle weakness or decreased range of motion Thoracic/Lumber: Yes thoracic and lumbar spine normal to inspection, Yes paraspinal tenderness on the right greater than left (upper thoracic, lumbopelvic), Yes thoraco-lumbar ROM limited with rotation to the right, Yes thoraco-lumbar spasm on the right greater than left (glute, piriformis,trap) and on the left greater than right (paraspinal L2-L5) and Yes misalignment T3, T4, T5, L3, L4, L5 and RIL Sacroiliac joints: on the right Ortho Test CERVICAL THORACIC LUMBAR Kemps: Negative Valsalvas: Negative SLR: Negative Iliac Compression: Positive and Right Office Procedures Procedures - Chiropractic Procedures Manipulation: Lumbar L4, Thoracic T3 and Pelvis RIL Manipulation: 3-4 regions Electronic Stimulation: Yes Electrical Stimulation: Lumbar 15 mins (18) mA Therapy Performed by:: Fatuma Ding Traction, Mechanical: Yes Patient Response: positive Assessment and Plan Assessment and Plan (1) Back pain: Status: Acute Qualifiers: Back pain laterality: right Back pain location: low back pain Chronicity: acute Sciatica presence: without sciatica Qualified Code(s): M54.50 - Low back pain, unspecified (2) Segmental and somatic dysfunction of pelvic region: Status: Acute (3) Segmental and somatic dysfunction of lumbar region: Status: Acute (4) Segmental and somatic dysfunction of thoracic region: Status: Acute Orders: Orders Chiropractic Treatments Today M54.9 - Dorsalgia, unspecified, M99.03 - Segmental and somatic dysfunction of lumbar region, M99.05 - Segmental and somatic dysfunction of pelvic reg (more content not included)... Normal [facility] Chiropractic Reporton 2023 Chiropractic Report [facility] [address] [place] [address] OFFICE VISIT Date of Service: 08/26/23 MR#: [id number] Acct: [id number] Name: JACQUELINE ESQUIVEL Rep #: [id number] : 1975 Provider: ROSALES Stockton Age/Sex: 48/F Location: [facility] [place] Status: Signed Intake Vital Signs 05/19/21 16:41 08/26/23 16:01 Height 5 ft 6 in 5 ft 6 in Weight: 229 lb BMI 36.9 BP 138/80 H Intake Visit Reasons: est care Is patient in pain?: Yes (right low back ) Pain scale (1-10): 1 Allergies Penicillins Allergy (Verified 08/26/23 15:58) Rash Medications bupropion HCl 150 mg 24 hr tablet, extended release (Wellbutrin XL) 150 mg PO QAM 09/24/17 [History Confirmed 08/26/23] ropinirole 1 mg tablet 1 mg PO QHS 09/24/17 [History Confirmed 08/26/23] albuterol sulfate 90 mcg/actuation aerosol inhaler (Ventolin HFA) 2 puff inhalation Q4H PRN shortness of breath or wheezing #1 device 06/13/18 [Rx Confirmed 08/26/23] omeprazole 40 mg capsule,delayed release 40 mg PO DAILY 04/28/19 [History Confirmed 08/26/23] guaifenesin 1,200 mg tablet, extended release 12 hr (Mucinex) 1,200 mg PO BID 05/19/21 [History Confirmed 08/26/23] montelukast 10 mg tablet (Singulair) 10 mg PO DAILY 08/26/23 [History Confirmed 08/26/23] [facility] Medical History Acid reflux of child Heart murmur Pre-diabetes Surgical History History of eyelid surgery Hx of dilation and curettage Hx of tonsillectomy Family History Father Hypertension High cholesterol Mother Graves disease Hypertension High cholesterol Social History Smoking Status: Never smoker second hand exposure: No alcohol intake: never substance use type: does not use caffeine: Yes what type of physical activity do you participate in: walking, running, bicycling and weight training frequency: 3-4 times per week [facility] care Chief Complaint: right low back pain Visit Number: 1 Details: Jacqueline is a 48 y/o female 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 Pt. advises she has been experiencing low back tightness for a few months, insidious onset. She states her pain is on the right side of her lumbar spine. She denies injury, numbness, tingling or radiculopathy. She denies previous back surgery. She has been treating pain at home with Aleve and stretching. She rates her pain 1/10 today but had been up to a 7/10 a couple weeks ago. She is currently training for a marathon in November and would like to address the pain and tightness now. She states the pain is aggravated with leaning over and laying flat on her back. She states her low back pain will awaken her during the night and has been sleeping side to side. Location: right low back Duration: intermittent Aggravating or associated factors: laying down Relieving factors: chiro Pain Quality: aching and dull Exam Musc General: Yes normal posture, normal gait and joint tenderness; No muscle weakness or decreased range of motion Thoracic/Lumber: Yes thoracic and lumbar spine normal to inspection, Yes Lasegue's sign negative, Yes straight leg raise negative bilaterally, Yes pain with thoraco-lumbar ROM with rotation to the right, Yes paraspinal tenderness on the right greater than left (lumbopelvic), Yes thoraco-lumbar ROM limited with rotation to the right, Yes thoraco-lumbar spasm on the right greater than left (glute, piriformis) and on the left greater than right (paraspinal L2-L5) and Yes misalignment L3, L4, L5 and RIL Sacroiliac joints: on the right Ortho Test CERVICAL THORACIC LUMBAR Kemps: Negative Valsalvas: Negative SLR: Negative Iliac Compression: Positive and Right Office Procedures Procedures - Chiropractic Procedures Manipulation: Lumbar L4 and Pelvis RIL Manipulation: 1-2 regions Electronic Stimulation: Yes Electrical Stimulation: Lumbar 15 mins (19) mA Therapy Performed by:: Dr. Nubia Larson DC Traction, Mechanical: Yes Patient Response: positive Assessment and Plan Assessment and Plan (1) Segmental and somatic dysfunction of pelvic region: Status: Acute (2) Segmental and somatic dysfunction of lumbar region: Status: Acute (3) Back pain: Status: Acute Qualifiers: Back pain laterality: right Back pain location: low back pain Chronicity: acute Sciatica presence: without sciatica Qualified Code(s): M54.50 - Low back pain, unspecified Orders: Orders Chiropractic Treatments 08/26/23 M54.9 - Dorsalgia, unspecified, M99.03 - Segmental and somatic dysfunction of lumbar region, M99.05 - Segmental and somatic dysfunction of pelvic region Plan Patient was evaluated and treated without incident. O (more content not included)... Normal [facility] Absolute lymphocyte counton 05-21-2022 Lymphocytes Auto (Unsp spec) [#/Vol] 2.44 10*3/uL 0.83-4.51 [facility] Work Phone: Basophil percentageon 2021 Basophils/100 WBC (Bld) 0.4 % 0-1 [facility] Work Phone: Bilirubin [Mass/Vol] 0.60 mg/dL 0.20-1.00 [facility] Work Phone: Comment on above: For patients on eltr ombopag therapy, use of Dimension [place] TBIL is not recommended. Chloride [Moles/Vol] 108 mmol/L 98-107 [facility] Work Phone: Cholesterol [Mass/Vol] 174 mg/dL <200 [facility] Work Phone: Comment on above: <200 mg/dL Desirable 200-240 mg/dL Borderline >240 mg/dL High Risk Eosinophils/100 WBC (Bld) 2.5 % 0-5 [facility] Work Phone: Glucose [Mass/Vol] 100 mg/dL 74-[address] [facility] Work Phone: [phone] Comment on above: Fasting Glucose resu lt from 100 to 125 mg/dL suggests IMPAIRED HOMEOSTASIS per A.D.A. criteria. Neutrophils (Bld) [#/Vol] 3.8 10*3/uL 2.0-7.7 [facility] Work Phone: Neutrophils/100 WBC (Bld) 55.2 % 47-70 [facility] Work Phone: Potassium [Moles/Vol] 4.3 mmol/L 3.5-5.1 [facility] Work Phone: [phone] Protein [Mass/Vol] 7.5 g/dL 6.4-8.[address] [facility] Work Phone: [phone] Sodium [Moles/Vol] 140 mmol/L 136-[address] [facility] Work Phone: Triglyceride [Mass/Vol] 69 mg/dL <199 [facility] Work Phone: Comment on above: The drugs N-Acetylcy steine and Metamizole may falsely depress this assay.Serum Triglycerides Reference Interval Normal <150 mg/dL Borderline high 150 - 199 mg/dL High 200 - 499 mg/dL Very High > or = 500 mg/dL WBC (Bld) [#/Vol] 6.9 10*3/uL 4.4-11.[address] [facility] Work Phone: Blood erythrocytes count (nu mber/volume)on 05-21-2022 RBC (Bld) [#/Vol] 4.96 10*6/uL 4.2-5.4 [facility] Work Phone: Blood hemoglobin measurement (mass/volume)on 05-21-2022 Hemoglobin (Bld) [Mass/Vol] 12.7 g/dL 12.0-15.0 [facility] Work Phone: Blood lymphocytes/100 leukoc yteson 05-21-2022 Lymphocytes/100 WBC (Bld) 35.3 % 19-41 [facility] Work Phone: Blood monocytes/100 leukocyt eson 05-21-2022 Monocytes/100 WBC (Bld) 6.5 % 0-10 [facility] Work Phone: Blood platelet mean volumeon 05-21-2022 Platelet mean volume (Bld) [Entitic vol] 8.8 fL 6.2-12.0 [facility] Work Phone: Determination of erythrocyte mean corpuscular volume (MCV)on 05-21-2022 MCV (RBC) [Entitic vol] 81.7 fL 81-99 [facility] Work Phone: Hematocrit Auto (Bld) [Volum e fraction]on 05-21-2022 Hematocrit (Bld) [Volume fraction] 40.5 % 37-47 [facility] Work Phone: Laboratory - Chemistry and C hemistry - challengeon 05-21-2022 ALP [Catalytic activity/Vol] 77 U/L 45-117 [facility] Work Phone: ALT [Catalytic activity/Vol] 20 U/L 13-56 [facility] Work Phone: CO2 [Moles/Vol] 28.0 mmol/L 21.0-32.0 [facility] Work Phone: Globulin (S) [Mass/Vol] 3.7 g/dL 2.2-4.2 [facility] Work Phone: Urea nitrogen/Creatinine [Mass ratio] 25.0 mg/mg 05-21 [facility] Work Phone: Laboratory - Hematology and Cell countson 05-21-2022 Erythrocyte distribution width (RBC) [Entitic vol] 43.3 fL 35.1-43.9 [facility] Work Phone: Erythrocyte distribution width (RBC) [Ratio] 14.6 % 11.6-14.6 [facility] Work Phone: Immature granulocytes/100 WBC (Bld) 0.100 % 0.0-0.9 [facility] Work Phone: Comment on above: IG% - Immature Granu locytes (promyelocytes, myelocytes and metamyelocytes) > 1% indicates that a LEFT SHIFT is Present. MCH (RBC) [Entitic mass] 25.6 pg 27.0-32.0 [facility] Work Phone: Nucleated RBC/100 WBC (Bld) [Ratio] 0 % 0-5 [facility] Work Phone: MCHC Auto (RBC) [Mass/Vol]on 05-21-2022 MCHC (RBC) [Mass/Vol] 31.4 g/dL 32-36 [facility] Work Phone: No Panel Informationon 05-21 Estimated GFR (MDRD) Amer 85 mL/min >60 [facility] Work Phone: Comment on above: GFR Calc Estimated GFR (MDRD) Non-Af Amer 70 mL/min >60 [facility] Work Phone: Comment on above: Non- GFR Calc Thyroid Stimulating Hormone (TSH) 1.25 uIU/mL 0.358-3.74 [facility] Work Phone: Platelets bldon 05-21-2022 Platelets (Bld) [#/Vol] 289 10*3/uL 150-450 [facility] Work Phone: Serum or plasma albumin jennyfer urement (mass/volume)on 05-21-2022 Albumin [Mass/Vol] 3.8 g/dL 3.2-5.[address] [facility] Work Phone: Serum or plasma albumin/glob ulin mass ratioon 05-21-2022 Albumin/Globulin [Mass ratio] 1.0 {ratio} 0.9-2.4 [facility] Work Phone: Serum or plasma calcium jennyfer urement (mass/volume)on 05-21-2022 Calcium [Mass/Vol] 9.2 mg/dL 8.5-10.[address] [facility] Work Phone: Serum or plasma cholesterol in HDL measurement (mass/volume)on 05-21-2022 Cholesterol in HDL [Mass/Vol] 56 mg/dL >40 [facility] Work Phone: Comment on above: The drugs N-Acetylcy steine and Metamizole may falsely depress this assay. Reference Range HDL <40 mg/dL Low HDL Cholesterol HDL >or= 60 mg/dL High HDL Cholesterol Serum or plasma cholesterol in VLDL measurement (mass/volume)on 05-21-2022 Cholesterol in VLDL [Mass/Vol] 14 mg/dL 5-40 [facility] Work Phone: Serum or plasma creatinine m easurement (mass/volume)on 05-21-2022 Creatinine [Mass/Vol] 0.92 mg/dL 0.55-1.02 [facility] Work Phone: Comment on above: The validity of the calculated GFR & GFRAA in patients over 70 years has not been determined. Clinical correlation is essential. Serum or plasma low density lipoprotein (LDL) cholesterol measurement (mass/volume)on 05-21-2022 Cholesterol in LDL [Mass/Vol] 104 mg/dL 0-130 [facility] Work Phone: Serum or plasma urea nitroge n measurement (mass/volume)on 05-21-2022 Urea nitrogen [Mass/Vol] 23 mg/dL 7-18 [facility] Work Phone: Thin prep Papanicolaou smear with manual screeningon 05-21-2022 Thin prep Papanicolaou smear with manual screening 13 U/L 15-37 [facility] Work Phone: Thin prep Papanicolaou smear with manual screening 4 5-15 [facility] Work Phone: Whole blood hemoglobin A1c/t otal hemoglobin ratio (mass fraction)on 05-21-2022 HbA1c (Bld) [Mass fraction] 5.9 % 3.8-5.6 [facility] Work Phone: Comment on above: Normal < 5.7 % Predi abetic 5.7 - 6.4 % Diabetic >or= 6.5 % Please note range changes. PROGRESSon 05-09-2019 PROGRESS HNO ID: [id number] Author: Maurice Mujica Service: ? 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 She isn't bothered by it so there is nothing to do. I have confirmed and edited as necessary the relevant ophthalmic history, ROS, and the neuro exam findings as obtained by others. I have seen and examined this patient. I have discussed the case and the management of this patient's care with the Resident/Fellow, if applicable. I also have reviewed and agree with the assessment and plan as stated above and agree with all of its relevant components. Maurice Mujica, May 09, 2019 8:02 AM Normal [facility] CNCOon 02-02-2019 CNCO Letter Text Normal [facility] Vital Signs Date Time Vital Sign Value Performing Clinician Faci rossyy 12-12-2023 14:03-0400 Body temperature 97 [degF] Dr. Juliann Lowery Work Phone: [facility] 12-12-2023 14:03-0400 Diastolic blood pressure 81 mm[Hg] Dr. Juliann Lowery Work Phone: [facility] 12-12-2023 14:03-0400 Heart rate 74 /min Dr. Juliann Lowery Work Phone: [facility] 12-12-2023 14:03-0400 Respiratory rate 16 /min Dr. Juliann Lowery Work Phone: [facility] 12-12-2023 14:03-0400 SaO2% (BldA) [Mass fraction] 98 % Dr. Juliann Lowery Work Phone: [facility] 12-12-2023 14:03-0400 Systolic blood pressure 112 mm[Hg] Dr. Juliann Lowery Work Phone: [facility] 12-12-2023 10:49-0400 Body height 167.[address] Juliann Lowery Work Phone: [facility] 12-12-2023 10:49-0400 Body mass index (BMI) [Ratio] 37.1 kg/m2 Dr. Juliann Lowery Work Phone: [facility] 12-12-2023 10:49-0400 Body weight 104.[address] Juliann Lowery Work Phone: [facility] [facility] 08-26-2023 17:10-0500 Body height 167.[address] Juliann Lowery Work Phone: [facility] 08-26-2023 16:01-0500 Body mass index (BMI) [Ratio] 36.9 kg/m2 Dr. Juliann Lowery Work Phone: [facility] 08-26-2023 16:01-0500 Body weight 103.[address] Juliann Lowery Work Phone: [facility] 08-26-2023 16:01-0500 Diastolic blood pressure 80 mm[Hg] Dr. Juliann Lowery Work Phone: [facility] 08-26-2023 16:01-0500 Systolic blood pressure 138 mm[Hg] Dr. Juliann Lowery Work Phone: [facility] Encounters Encounter Date Encounter Type Care Provider Facility Start: 12-12-2023 End: 12-12-2023 Emergency department patient visit Juliann Lowery Facility:[facility] Start: 12-12-2023 End: 12-12-2023 Emergency department patient visit Dr. Juliann Lowery Work Phone: [facility]-Emergency Department Work Phone: Start: 12-10-2023 End: 12-10-2023 ambulatory Juliann Lowery Facility:[facility] Start: 12-10-[address] Juliann Lowery Work Phone: [facility]-Outpatient Breast Imaging Work Phone: Start: 12-09-2023 End: 12-09-2023 ambulatory Juliann Lowery Facility:[facility] Start: 12-09-2023 End: 12-09-[address] Juliann Lowery Work Phone: [facility] Work Phone: Start: 11-17-2023 End: 11-17-[address] Juliann Lowery Work Phone: [facility]-Laboratory, Specimen Work Phone: Start: 11-17-2023 End: 11-17-[address] Juliann Lowery Work Phone: [facility] Work Phone: Start: 11-09-2023 End: 11-09-2023 ambulatory Juliann Lowery Facility:[facility] Start: 11-09-2023 End: 11-09-[address] Juliann Lowery Work Phone: [facility] Work Phone: Start: 10-20-2023 Encounter for genera l adult medical examination without abnormal findings Juliann Lowery [facility] Start: 10-20-2023 End: 10-20-2023 ambulatory Eduar Robert Facility:[facility] Start: 10-20-2023 End: 10-20-[address] Juliann Lowery Work Phone: [facility] Work Phone: Start: 10-18-2023 End: 10-18-[address] Juliann Lowery Work Phone: [facility]-Radiology, [facility] Work Phone: Start: 10-18-2023 End: 10-18-[address] Juliann Lowery Work Phone: [facility] Work Phone: Start: 10-15-2023 End: 10-15-[address] Juliann Lowery Work Phone: [facility] Work Phone: Start: 10-15-2023 End: 10-15-[address] Juliann Lowery Work Phone: [facility]-Laboratory Work Phone: Start: 10-11-2023 End: 10-11-2023 ambulatory Juliann Lowery Facility:[facility] Start: 10-11-2023 End: 10-11-[address] Juliann Lowery Work Phone: [facility] Work Phone: Start: 09-13-2023 End: 09-13-2023 ambulatory Harinder Chang Facility:[facility] Start: 09-13-2023 End: 09-13-[address] Juliann Lowery Work Phone: [facility] Start: 08-26-2023 End: 08-26-2023 ambulatory Juliann Lowery Facility:[facility] Start: 08-26-2023 End: 08-26-[address] Juliann Lowery Work Phone: [facility] Work Phone: Start: 07-17-2022 End: 07-17-2022 ambulatory [facility] Work Phone: Start: 07-17-2022 End: 07-17-2022 Patient encounter procedure [facility]-Outpatient Breast Imaging Start: 05-21-2022 End: 05-21-2022 ambulatory [facility] Work Phone: Start: 05-21-2022 End: 05-21-2022 Patient encounter procedure [facility] Procedures Date Procedure Procedure Detail Performing Clinician Start: 12-12-2023 Plain chest X-ray Dr. Juliann Lowery Work Phone: Start: 12-10-[address] Juliann Lowery Work Phone: Start: 10-18-2023 Plain X-ray of shoulder Dr. Juliann Lowery Work Phone: Start: 10-18-2023 X-ray of lumbosacral spine Dr. Juliann Lowery Work Phone: Start: 07-17-2022 Screening mammography H/O: surgery Hx of dilation a nd curettage History of tonsillectomy Hx of tonsillect rina Plan of Treatment Date Care Activity Detail Author Start: 12-12-2023 End: 12-12-2023 [facility] Start: 10-18-2023 X-ray of lumbosacral spine L/S Spine Min 4 Views [facility] Start: 09-13-2023 X-ray of lumbosacral spine L/S Spine Min 4 Views [facility] Start: 09-13-2023 XR Spine Lumbar and Sacrum GE 4 Views [facility] Patient Education ED Palpitations [facility] Work Phone: Patient referral [facility] Work Phone: Immunizations Immunization Date Immunization Notes Care Provider Fa cili 05-20-2022 influenza, injectabl e, quadrivalent, preservative free Dr. Juliann Lowery Work Phone: [facility] 05-20-2022 influenza, seasonal, injectable [facility] Work Phone: 05-07-2021 influenza, injectabl e, quadrivalent, preservative free Dr. Juliann Lowery Work Phone: [facility] 05-07-2021 influenza, seasonal, injectable [facility] Work Phone: 08-28-2020 [facility] (Moderna) [facility] 05-20-2020 influenza, injectabl e, quadrivalent, preservative free Dr. Juliann Lowery Work Phone: [facility] 05-20-2020 influenza, seasonal, injectable [facility] Work Phone: 04-27-2019 influenza, injectabl e, quadrivalent, preservative free Dr. Juliann Lowery Work Phone: [facility] 04-27-2019 influenza, seasonal, injectable [facility] Work Phone: 04-29-2018 influenza, injectabl e, quadrivalent, preservative free Dr. Juliann Lowery Work Phone: [facility] 04-29-2018 influenza, seasonal, injectable [facility] Work Phone: 05-17-2017 influenza, injectabl e, quadrivalent, preservative free Dr. Juliann Lowery Work Phone: [facility] 05-17-2017 influenza, seasonal, injectable [facility] Work Phone: 04-30-2016 influenza, injectabl e, quadrivalent, preservative free Dr. Juliann Lowery Work Phone: [facility] 04-30-2016 influenza, seasonal, injectable [facility] Work Phone: Payers Date Payer Category Payer Unknown [id number] 2023 Self-pay [id number] Private Health Insurance [employer] [id number] Private Health Insurance [id number] Unknown [id number] 2.16.8 [id number] Unknown [id number] 2.16.8 [id number] Unknown [id number] 2.16.8 [id number] Unknown [id number] 2.16.8 [id number] Unknown [id number] 2.16.8 [id number] Unknown [id number] 2.16.8 [id number] Unknown [id number] 2.16.8 [id number] Unknown [id number] 2.16.8 [id number] Unknown [id number] 2.16.8 [id number] Unknown [id number] 2.16.8 [id number] Unknown [id number] 2.16.8 [id number] Unknown [id number] 2.16.8 [id number] Social History Date Type Detail Facility Start: 05-19-2021 End: 12-12-2023 Tobacco smoking status NHIS Unknown if ever smoked [facility] Start: 06-08-2019 Non-smoker [facility] Start: 1975 Sex Assigned At Female [facility] Goals Date Patient Goal Desired Activity /State Mental Status Date Assessment Result Facility 12-12-2023 Cognitive function Awake;Alert;A ppropriate;Fol lows Commands [facility] Work Phone: Clinical Note 11-17-2023 Note Date & Type Note Facility 11-17-2023 Note [facility] Pap Smear Specimen Adequacy November 17, 2023 4:30pm Comment . Satisfactory for evaluation. Endocervical and/or squamous metaplasticcells (endocervical component) are present. Comment on above: Satisfactory for vkiki luation. Endocervical and/or squamous metaplasticcells (endocervical component) are present. Clinical Note 11-17-2023 Note Date & Type Note Facility 11-17-2023 Note [facility] Pap Smear Specimen Adequacy November 17, 2023 4:30pm Comment . Satisfactory for evaluation. Endocervical and/or squamous metaplasticcells (endocervical component) are present. Comment on above: Satisfactory for vikki luation. Endocervical and/or squamous metaplasticcells (endocervical component) are present. Evaluation note Note Date & Type Note Facility Evaluation note No assessment information availa ble [facility] Work Phone: Evaluation note Note Date & Type Note Facility Evaluation note Diagnosis Onset Date Back pain acute Segmental and somatic dysfun ction of lumbar region acute Segmental and somatic dysfun ction of pelvic region acute Back pain acute Segmental and somatic dysfun ction of lumbar region acute Segmental and somatic dysfun ction of pelvic region acute Segmental and somatic dysfun ction of thoracic region acute Back pain acute Segmental and somatic dysfun ction of lumbar region acute Segmental and somatic dysfun ction of pelvic region acute Segmental and somatic dysfun ction of thoracic region acute [facility] Work Phone: Evaluation note Note Date & Type Note Facility Evaluation note Diagnosis Onset Date Back pain acute Segmental and somatic dysfun ction of lumbar region acute Segmental and somatic dysfun ction of pelvic region acute Back pain acute Segmental and somatic dysfun ction of lumbar region acute Segmental and somatic dysfun ction of pelvic region acute Segmental and somatic dysfun ction of thoracic region acute Back pain acute Segmental and somatic dysfun ction of lumbar region acute Segmental and somatic dysfun ction of pelvic region acute Segmental and somatic dysfun ction of thoracic region acute Sprain of right acromioclavicular joint acute [facility] Work Phone: Evaluation note Note Date & Type Note Facility Evaluation note Diagnosis Onset Date Back pain acute Segmental and somatic dysfun ction of lumbar region acute Segmental and somatic dysfun ction of pelvic region acute Back pain acute Segmental and somatic dysfun ction of lumbar region acute Segmental and somatic dysfun ction of pelvic region acute Segmental and somatic dysfun ction of thoracic region acute Back pain acute Segmental and somatic dysfun ction of lumbar region acute Segmental and somatic dysfun ction of pelvic region acute Segmental and somatic dysfun ction of thoracic region acute Sprain of right acromioclavicular joint acute Back pain acute Segmental and somatic dysfun ction of lumbar region acute Segmental and somatic dysfun ction of pelvic region acute Segmental and somatic dysfun ction of thoracic region acute [facility] Work Phone: Evaluation note Note Date & Type Note Facility Evaluation note Diagnosis Onset Date Back pain acute Segmental and somatic dysfun ction of lumbar region acute Segmental and somatic dysfun ction of pelvic region acute Back pain acute Segmental and somatic dysfun ction of lumbar region acute Segmental and somatic dysfun ction of pelvic region acute Segmental and somatic dysfun ction of thoracic region acute Back pain acute Segmental and somatic dysfun ction of lumbar region acute Segmental and somatic dysfun ction of pelvic region acute Segmental and somatic dysfun ction of thoracic region acute Sprain of right acromioclavicular joint acute Back pain acute Segmental and somatic dysfun ction of lumbar region acute Segmental and somatic dysfun ction of pelvic region acute Segmental and somatic dysfun ction of thoracic region acute Back pain acute Segmental and somatic dysfun ction of lumbar region acute Segmental and somatic dysfun ction of pelvic region acute Segmental and somatic dysfun ction of thoracic region acute [facility] Work Phone: Hospital Discharge instructions Note Date & Type Note Facility Hospital Discharge instructions Additional Instructions Follow-up with PCP and return for any worsening of your symptoms. 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 No June 08, 2019 11:44am Advance Directive Response Recorded Date/ Time Living Will No June 08 10:44am [employer] of [employer] Operator No June 08, 2019 10:44am Advance Directive Response Recorded Date/ Time Living Will No August 26 6:10pm Power of [employer] Operator No August 26, 2023 6:10pm Advance Directive Response Recorded Date/ Time Living Will No December 12, 2023 1 1:31am [employer] of [employer] Operator No December 12, 2023 11:31am Chief Complaint and Reason for Visit Chief Complaint SCREENING Chief Complaint est care Back pain XRAY Back pain EORDER RIGHT SHOULDER Reason for Visit Back pain Segmental and somatic dysfunction of lumbar region Segmental and somatic dysfunction of pelvic region Back pain Segmental and somatic dysfunction of lumbar region Segmental and somatic dysfunction of pelvic region Segmental and somatic dysfunction of thoracic region Back pain Segmental and somatic dysfunction of lumbar region Segmental and somatic dysfunction of pelvic region Segmental and somatic dysfunction of thoracic region Chief Complaint est care Back pain XRAY Back pain EORDER RIGHT SHOULDER Reason for Visit Back pain Segmental and somatic dysfunction of lumbar region Segmental and somatic dysfunction of pelvic region Back pain Segmental and somatic dysfunction of lumbar region Segmental and somatic dysfunction of pelvic region Segmental and somatic dysfunction of thoracic region Back pain Segmental and somatic dysfunction of lumbar region Segmental and somatic dysfunction of pelvic region Segmental and somatic dysfunction of thoracic region Sprain of right acromioclavicular joint Chief Complaint est care Back pain XRAY Back pain EORDER RIGHT SHOULDER Back pain Reason for Visit Back pain Segmental and somatic dysfunction of lumbar region Segmental and somatic dysfunction of pelvic region Back pain Segmental and somatic dysfunction of lumbar region Segmental and somatic dysfunction of pelvic region Segmental and somatic dysfunction of thoracic region Back pain Segmental and somatic dysfunction of lumbar region Segmental and somatic dysfunction of pelvic region Segmental and somatic dysfunction of thoracic region Sprain of right acromioclavicular joint Back pain Segmental and somatic dysfunction of lumbar region Segmental and somatic dysfunction of pelvic region Segmental and somatic dysfunction of thoracic region Chief Complaint est care Back pain XRAY Back pain EORDER RIGHT SHOULDER Back pain BACK PAIN SCREENING PALP Reason for Visit Back pain Segmental and somatic dysfunction of lumbar region Segmental and somatic dysfunction of pelvic region Back pain Segmental and somatic dysfunction of lumbar region Segmental and somatic dysfunction of pelvic region Segmental and somatic dysfunction of thoracic region Back pain Segmental and somatic dysfunction of lumbar region Segmental and somatic dysfunction of pelvic region Segmental and somatic dysfunction of thoracic region Sprain of right acromioclavicular joint Back pain Segmental and somatic dysfunction of lumbar region Segmental and somatic dysfunction of pelvic region Segmental and somatic dysfunction of thoracic region Back pain Segmental and somatic dysfunction of lumbar region Segmental and somatic dysfunction of pelvic region Segmental and somatic dysfunction of thoracic region Additional Source Comments INFORMATION SOURCE (unrecogn ized section and content) DATE CREATED AUTHOR 05/09/2019 [facility] DATE CREATED AUTHOR AUTHOR'S ORGANIZ ATION 12/21/2023 [facility] Goals (unrecognized section and content) Goals may be documented in a n alternate sectionGoals may be documented in an alternate sectionGoals may be documented in an alternate section Care Teams (unrecognized sec tion and content) Team Status: Active Member Role Status Dates Dr. Juliann Lowery DO Family Provider Active Dr. Juliann Lowery DO Primary Care Provider Active Team Status: Inactive Member Role Status Dates Dr. Juliann Lowery DO Primary Care Provider, Referring P rovider Active Dr. Nubia Larson DC Attending Provider Active Team Status: Inactive Member Role Status Dates Dr. Juliann oLwery DO Primary Care Provider Active Dr. Nubia Larson DC Attending Provider Active Team Status: Inactive Member Role Status Dates Dr. Juliann Lowery DO Primary Care Provider, Referring P rovider Active Dr. Eduar Robert DO Attending Provider Active Team Status: Inactive Member Role Status Dates Dr. Juliann Lowery DO Primary Care Provide r, Attending Provider, Referring Provider Active Team Status: Active Member Role Status Dates Dr. Juliann Lowery DO Primary Care Provider Active Dr. Nubia Larson DC Attending Provider, Referring Pro vider Active Team Status: Inactive Member Role Status Dates Dr. Juliann Lowery DO Primary Care Provider Active Dr. Nubia Larson DC Attending Provider, Referring Pro vider Active Team Status: Active Member Role Status Dates Dr. Juliann Lowery DO Primary Care Provide r, Attending Provider, Referring Provider Active Team Status: Inactive Member Role Status Dates Dr. Juliann Lowery DO Primary Care Provider Active Dr. Miki Verduzco , DO Emergency Provider Active FOR RECORDS PERTAINING TO PATIENTS WHO ARE [...] BE BASED ON THE PRIMARY CLINICAL RECORDS. [facility]. provides no warranty or guarantee of the accuracy or completeness of information in this document.
== END | disposition home or self-care (01) ==
LOC: OPBI 15:21
PROVIDERS: PCP Family Medicine; Referring Provider Family Medicine; Visit Provider Family Medicine
DX: Z12.31 Encounter for screening mammogram for malignant neoplasm of breast (principal)
CPT/HCPCS: 77063; 77067